=== PATIENT | male | born 1935 | race Caucasian/White ===

== ENCOUNTER 2020-03-01 14:31 | Emergency (ER) | payer OTHER ==
--- OUTSIDE RECORDS SUMMARY | 2020-03-01 14:33 | XMS REPORT | Continuity of Care Document ---
:[address] 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 Ou tpati ent Clinics Mild Mild Diagnosis Active [facility]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 [facility] - impairment impairment Me moria l [facility] Clin[facility] Essential Essential Diagnosis Active [facility] (primary) (primary) [facility] - hypertensi hypertensi Me moria on on l Outpati ent Clinics 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 [facility] - (BCC) of (BCC) of Memori a skin of skin of l ear, ear, Outpati unspecifie unspecifie en t d d Clinics laterality laterality Osteoporos Osteoporos Diagnosis Active [facility] is, is, [facility] - unspecifie unspecifie Me moria d d l osteoporos osteoporos Ou tpati is type, is type, ent unspecifie unspecifie Cl inics d d pathologic pathologic al al fracture fracture presence presence Hypertrigl Hypertrigl Diagnosis Active [facility] yceridemia yceridemia Annalise kes - [facility] Osteoarthr Osteoarthr Diagnosis Active [facility] itis, itis, [facility] - unspecifie unspecifie Me moria d d l osteoarthr osteoarthr Ou tpati itis type, itis type, en t unspecifie unspecifie Cl inics d site d site 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 Medications Ordered Filled Start Stop Current Ordering Indication Dosage Frequency Signature Comments Components Source Medication Medication Date Date Medication? Clinician (SIG) Name Name Melatonin Melatonin Yes Andrew [address] [facility] at bedtime [facility] - as needed [facility] with food [facility] Amlodipine Amlodipine Yes Andrew TAKE [address] [facility] Besylate Besylate Velazquez TABLET BY L ukes - MOUTH Memoria EVERY DAY l [facility] Aspercreme Aspercreme Yes Andrew as [facility] directed [facility] Tylenol Tylenol Yes Andrew [address] [facility]quez as needed [facility] Vitamin D3 Vitamin D3 Yes Andrew [address] [facility] Multi For Multi For Yes Andrew as [facility] Him 50+ Him 50+ Velazquez directed [facility] Coreg Coreg Yes Andrew [address] [facility] Losartan Losartan Yes Andrew [address] Potassium Potassium [facility]quez [facility] Ibuprofen Ibuprofen Yes Andrew [address] [facility] with food [facility] - or milk as Memoria needed l [facility] Fish Oil Fish Oil Yes Andrew [address] [facility] Vitamin B12 Vitamin B12 Yes Andrew as [facility] Immunizations Ordered Filled Immunization Date Status Comments Sourc e Immunization Name Name Silvio FluSRIDHAR 2019-06-[address] [facility] 00[facility]00 [facility] Outpatient Clinics Procedures This patient has no known procedures. Encounters Start End Encounter Admission Attending Care Care Encounter Source Date/Time Date/Time Type Type Clinicians Facility Department ID 2019-11-28 2019-11-28 Outpatient Matthew Howard [id number] [facility] 14:45[facility]00 14:45:00 [facility] 2019-09-11 2019-09-11 Outpatient Matthew Howard [id number] [facility] 10:46:00 10:46:00 [address] [employer] [address] [facility] Medicine Medicine Outpati ent Clinics 2019-08-30 2019-08-30 [facility] [id number] 14:00:00 14:00:00 [facility] [employer] [address] [facility] l Medicine Outpati ent Clinics 2019-06-25 2019-06-25 [facility] [id number] [address] 14:15:00 14:15:00 [facility] [employer] [address] [facility] Medicine l Medicine Outpati ent Clinics 2019-05-29 2019-05-29 [facility] [id number] [address] 13:00:00 13:00:00 [facility] [employer] [address] [facility] Medicine Outpati ent Clinics 2019-05-24 2019-05-24 [facility] [id number] 15:49:00 15:49:00 [facility] [employer] [address] [facility] Medicine Outpati ent Clinics 2019-05-21 2019-05-21 [facility] [id number] [address] 17:05:00 17:05:00 [facility] [employer] [address] [facility] l Medicine Outpati ent Clinics 2019-04-17 2019-04-17 [facility] [id number] 15[facility]15:00 15:15:00 [facility] Medicine Outpati ent Clinics 2018-10-26 2018-10-26 [facility] [id number] 10:00:00 10:00:00 t [facility] [employer] [facility] Medicine Medicine Outpati ent Clinics 2018-10-09 2018-10-09 [facility] [id number] 14:44:00 14:44:00 t [facility] [employer] [facility] l Medicine Outpati ent Clinics 2018-04-13 2018-04-13 [facility] [id number] 09:30:00 09:30:00 t [facility] [employer] [facility] [employer] [facility] Medicine Outpati ent Clinics 2018-03-14 2018-03-14 [facility] [id number] 14:00:00 14:00:00 [facility] Medicine Outpati ent Clinics Results This patient has no known results.
[2020-03-01] MEDS ORDERED: HYDROCODONE/APAP 7.5/325 MG TAB ONE (15:38)
--- NOTE | 2020-03-01 15:51 | ER ---
Nurse's Notes [facility] Name: Dragan Dalal Age: 84 yrs Sex: Male : 1935 Arrival Date: 03/01/2020 Time: 14:34 Bed 17 Private MD: Andrew Velazquez Diagnosis: Sciatica, right side Presentation: 03/01 14:48 Chief complaint: Patient states: right hip pain that radiates down the right leg, em denies injury, ambulated to room. Coronavirus screen: Client denies travel out of the [place] in the last 14 days. Ebola Screen: Patient negative for fever greater than or equal to 101.5 degrees Fahrenheit, and additional compatible Ebola Virus Disease symptoms Patient denies exposure to infectious person. Patient denies travel to an Ebola-affected area in the 21 days before illness onset. No symptoms or risks identified at this time. Initial Sepsis Screen: Does the patient meet any 2 criteria? No. Patient's initial sepsis screen is negative. Does the patient have a suspected source of infection? No. Patient's initial sepsis screen is negative. Risk Assessment: Do you want to hurt yourself or someone else? Patient reports no desire to harm self or others. Onset of symptoms was February 27, 2020. 14:48 Method Of Arrival: Ambulatory em 14:48 Acuity: DESIREE 4 em Historical: - Allergies: 14:50 No Known Allergies; em - PMHx: 14:50 Hypertension; em - PSHx: 14:50 Knee surgery; em - Immunization history:: Adult Immunizations up to date. - Social history:: Smoking status: Patient denies any tobacco usage or history of. Screenin:50 Abuse screen: Denies threats or abuse. Nutritional screening: No deficits noted. em Tuberculosis screening: No symptoms or risk factors identified. Fall Risk None identified. Assessment: 14:48 General: Appears in no apparent distress. uncomfortable, Behavior is calm, cooperative, em appropriate for age. Pain: Complains of pain in right hip Pain currently is 7 out of 10 on a pain scale. Neuro: Level of Consciousness is awake, alert, obeys commands, Oriented to person, place, time, situation, Appropriate for age. Cardiovascular: Capillary refill < 3 seconds Patient's skin is warm and dry. Respiratory: Airway is patent Respiratory effort is even, unlabored, Respiratory pattern is regular, symmetrical. Derm: Skin is intact, is fragile, is thin, Skin is pink, warm \T\ dry. Musculoskeletal: Capillary refill < 3 seconds, Range of motion: intact in all extremities. 15:30 Reassessment: Patient appears in no apparent distress at this time. Patient and/or em family updated on plan of care and expected duration. Pain level reassessed. Patient is alert, oriented x 3, equal unlabored respirations, skin warm/dry/pink. Vital Signs: 14:48 BP 165 / 88; Pulse 65; Resp 18; Temp 97.8; Pulse Ox 98% on R/A; Weight 65.77 kg; Height em 5 ft. 9 in. (175.26 cm); Pain 7/10; 14:48 Body Mass Index 21.41 (65.77 kg, 175.26 cm) em ED Course: 14:34 Patient arrived in ED. mr 14:34 Andrew Velazquez DO is Private Physician. mr 14:39 Benedicto Couch, EDIN is Primary Nurse. em 14:42 Zac Marie PA is PHCP. cp 14:42 Kam Alexandra MD is Attending Physician. cp 14:49 Triage completed. em 14:50 Arm band placed on. em 14:50 Patient has correct armband on for positive identification. Placed in gown. Bed in low em position. Call light in reach. 15:19 XRAY Pelvis In Process Unspecified. EDMS 15:20 XRAY Hip RIGHT 2 view In Process Unspecified. EDMS 16:13 No provider procedures requiring assistance completed. Patient did not have IV access em during this emergency room visit. Administered Medications: 15:31 Drug: Hydrocodone-Acetaminophen (7.5 mg-325 mg) 1 tabs Route: PO; em 16:15 Follow up: Response: No adverse reaction em Outcome: 15:51 Discharge ordered by MD. cp 16:13 Discharged to home via wheelchair. em 16:13 Condition: good 16:13 Discharge instructions given to patient, Instructed on discharge instructions, follow up and referral plans. medication usage, Demonstrated understanding of instructions, follow-up care, medications, Prescriptions given X 2. 16:15 Patient left the ED. em Signatures: Dispatcher [employer] Nga Garcia mr Couch, Benedicto, RN RN em Page, Zac, PA PA cp
--- NOTE | 2020-03-01 15:51 | EDPHYS ---
Physician Documentation [facility] Name: Dragan Dalal Age: 84 yrs Sex: Male : 1935 Arrival Date: 03/01/2020 Time: 14:34 Bed 17 Private MD: [facility] ED Physician Kam Alexandra HPI: 03/01 15:05 This 84 yrs old Male presents to ER via Ambulatory with complaints of Hip cp Pain, Leg Pain. 15:05 The patient or guardian reports pain. The complaints affect the right hip and right cp buttock. Onset: The symptoms/episode began/occurred 1 week(s) ago. 15:05 Patient reports having pain for years in right hip and right buttock area that became cp worse after bending over to catch an air conditioner that he was carrying 1 week ago. Historical: - Allergies: 14:50 No Known Allergies; em - PMHx: 14:50 Hypertension; em - PSHx: 14:50 Knee surgery; em - Immunization history:: Adult Immunizations up to date. - Social history:: Smoking status: Patient denies any tobacco usage or history of. ROS: 15:10 Constitutional: Negative for body aches, chills, fever. cp 15:10 Neck: Negative for pain with movement, pain at rest, stiffness. cp 15:10 Cardiovascular: Negative for chest pain. 15:10 Respiratory: Negative for shortness of breath. 15:10 Abdomen/GI: Negative for abdominal pain, nausea, vomiting, and diarrhea. 15:10 Back: Negative for pain at rest, pain with movement, radiated pain. 15:10 MS/extremity: Positive for pain, of the right hip and right leg and right buttock, Negative for decreased range of motion, deformity. 15:10 Neuro: Negative for altered mental status, headache, numbness, tingling, weakness. 15:10 All other systems are negative. Exam: 15:20 Constitutional: The patient appears in no acute distress, alert, awake, non-toxic, well cp developed, well nourished. 15:20 Head/Face: Normocephalic, atraumatic. cp 15:20 Chest/axilla: Inspection: normal. 15:20 Cardiovascular: Rate: normal, Edema: is not appreciated, JVD: is not appreciated. 15:20 Respiratory: the patient does not display signs of respiratory distress, Respirations: normal, no use of accessory muscles, no retractions, labored breathing, is not present. 15:20 Abdomen/GI: Inspection: abdomen appears normal, Palpation: abdomen is soft and non-tender, in all quadrants. 15:20 Back: vertebral tenderness, is not appreciated. 15:20 Musculoskeletal/extremity: Extremities: grossly normal except: noted in the right buttock: pain, tenderness, ROM: limited passive range of motion due to pain, in the right hip, the right leg Sensation intact. Weight bearing: able to fully bear weight. 15:20 Skin: no rash present. Vital Signs: 14:48 BP 165 / 88; Pulse 65; Resp 18; Temp 97.8; Pulse Ox 98% on R/A; Weight 65.77 kg; Height em 5 ft. 9 in. (175.26 cm); Pain 7/10; 14:48 Body Mass Index 21.41 (65.77 kg, 175.26 cm) em MDM: 14:44 Patient medically screened. cp 15:00 Differential diagnosis: intertrochanteric fracture, femoral neck fracture, femoral cp shaft fracture, strain, sciatica. 15:45 Test interpretation: by ED physician or midlevel provider: xrays of pelvis negative for cp fracture and xrays of right hip negative for fracture. 15:50 Data reviewed: vital signs, nurses notes, radiologic studies, plain films, and as a cp result, I will discharge patient. 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 15:50 Response to treatment: the patient's symptoms have markedly improved after treatment, cp and as a result, I will discharge patient. 03/01 14:59 Order name: XRAY Pelvis; Complete Time: 16:15 cp 03/01 16:15 Interpretation: Report reviewed. cp 03/01 14:59 Order name: XRAY Hip RIGHT 2 view; Complete Time: 16:15 cp 03/01 16:15 Interpretation: Report reviewed. cp Administered Medications: 15:31 Drug: Hydrocodone-Acetaminophen (7.5 mg-325 mg) 1 tabs Route: PO; em 16:15 Follow up: Response: No adverse reaction em Disposition: 16:00 Chart complete. cp Disposition: 03/01/20 15:51 Discharged to Home. Impression: Sciatica, right side. - Condition is Stable. - Discharge Instructions: Sciatica, Back Exercises. - Prescriptions for Tramadol 50 mg Oral Tablet - take 1 tablet by ORAL route every 8 hours As needed as needed; 20 tablet. Medrol (Rony) 4 mg Oral Tablets, Dose Pack - take 1 tablet by ORAL route as directed - follow package instructions; 1 packet. - Medication Reconciliation Form, Thank You Letter, Antibiotic Education, Prescription Opioid Use form. - Follow up: Private Physician; When: 2 - 3 days; Reason: Recheck today's complaints. - Problem is an ongoing problem. - Symptoms have improved. Signatures: Dispatcher [employer] Benedicto Mccartney RN RN em Cynthia, MICHELL Frank cp Corrections: (The following items were deleted from the chart) 16:15 15:51 03/01/2020 15:51 Discharged to Home. Impression: Sciatica, right side. Condition em is Stable. Forms are Medication Reconciliation Form, Thank You Letter, Antibiotic Education, Prescription Opioid Use. Follow up: Private Physician; When: 2 - 3 days; Reason: Recheck today's complaints. Problem is an ongoing problem. Symptoms have improved. cp
--- NOTE | 2020-03-01 16:00 | RAD REPORT ---
EXAM DESCRIPTION: RAD - Pelvis - 03/01/2020 3:23 pm CLINICAL HISTORY: PAIN COMPARISON: SCROTUM TESTICLES dated 02/15/2012 TECHNIQUE: AP imaging of the pelvis was obtained. FINDINGS: Lower lumbar degenerative change present only partially imaged. No fracture of the bony pe lvis. Bilateral hip joint degenerative changes are present mild for age. No AVN or focal femoral head abnormality seen. No suspicious soft tissue finding. IMPRESSION: Lower lumbar, pelvic and hip joint degenerative change as detailed. No fracture or acute finding.
--- NOTE | 2020-03-01 16:00 | RAD REPORT ---
EXAM DESCRIPTION: RAD - Hip Right 2 View - 03/01/2020 3:22 pm CLINICAL HISTORY: PAIN COMPARISON: No comparisons FINDINGS: AP and frog-leg views of the right hip were obtained. There is no fracture or dislocation. No AVN or focal head abnormality. No acute or destructive bony p rocess seen. IMPRESSION: Negative right hip examination for acute or significant findings.
== END 2020-03-01 16:15 | disposition home or self-care (01) ==
LOC: ER 14:31
DX: M54.31 Sciatica, right side (principal); I10 Essential (primary) hypertension
CPT/HCPCS: 72170; 99283

== ENCOUNTER 2022-06-19 17:42 | Emergency (ER) | payer MEDICARE ==
--- OUTSIDE RECORDS SUMMARY | 2022-06-19 17:45 | XMS REPORT | Continuity of Care Document ---
:1935 Author Organization [facility] t Address [address] [place] [address] Care Team Providers Name Role Phone Andrew Velazquez Attending Clinician Unavailable Wilbert_Mercedes Attending Clinician Unavailable BWclaribel Attending Clinician Unavailable Stacie Freeman Attending Clinician Wilbert_T Admitting Clinician Unavailable BWclaribel Admitting Clinician Unavailable Payers Payer Name Policy Type Policy Effective Date Expiration Date Sour ce Number [facility] [id number] 2021 (MEDICARE 00:00:00 REPLACEMENT HMO) [employer] MEDICARE C1 [id number] [facility] rit PPO - [facility] Problems Condition Condition Condition Status Onset Resolution Last Treating Co mments Source Name Details Category Date Date Treatment Clinician Date [id number] 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 - [facility] [id number] 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 - [facility] [id number] 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 unspecifie Medica l d Center laterality [id number] Osteoarthr Problem Co mmon itis, Spirit unspecifie - [facility] d osteoarthr [facility] itis type, Medica l unspecifie Center d site [id number] Hypertrigl Problem Co mmon yceridemia [facility] Allergies, Adverse Reactions, Alerts This patient has no known allergies or adverse reactions. Social History Social Habit Start Date Stop Date Quantity Comments Source History of Tobacco Use Co mmon [facility] Sex Assigned At Com mon [facility] Smoking Status Start Date Stop Date Source Former Smoker 2022-04-16 00:00:00 2022-04-16 00:00:00 Common [facility] Medications Ordered Filled Start Stop Current Ordering Indication Dosage Frequency Signature Comments Components Source Medication Medication Date Date Medication? Clinician (SIG) Name Name Melatonin Melatonin Yes Andrew 1 tablet Common Velazquez at bedtime Spirit as needed - [facility] with food [facility] Amlodipine Amlodipine Yes Andrew TAKE 1 Common Besylate Besylate Velazquez TABLET BY [facility] MOUTH - [facility] EVERY DAY [facility] Aspercreme Aspercreme Yes Andrew as C ommon Velazquez directed [facility] Tylenol Tylenol Yes Andrew 1 tablet Com mon Velazquez as needed [facility] Vitamin D3 Vitamin D3 Yes Andrew 2 tablets Common Velazquez [facility] Multi For Multi For Yes Andrew as Com mon Him 50+ Him 50+ Velazquez directed Spir [facility] Coreg Coreg Yes Andrew 1 tablet Common Velazquez [facility] Losartan Losartan Yes Andrew 1 tablet C ommon Potassium Potassium Velazquez [facility] Ibuprofen Ibuprofen Yes Andrew 1 tablet Common Velazquez with food Spirit or milk as - [facility] needed [facility] Fish Oil Fish Oil Yes Andrew 1 capsule Common Velazquez [facility] Vitamin B12 Vitamin B12 Yes Andrew as Common Velazquez directed [facility] Carvedilol Carvedilol Yes Andrew TAKE 1 Common Velazquez TABLET BY Spirit MOUTH - [facility] TWICE [facility] amLODIPine amLODIPine No QD amLODIPine Besylate Besylate Besylate 2.5 MG 2.5 MG 2.5 MG Losartan Losartan No 1{table BID Losartan Potassium Potassium t} Potassium 50 MG 50 MG 50 MG Coreg 12.5 Coreg 12.5 No 1{table BID Coreg 12.5 MG MG t} MG Donepezil Donepezil No 1{table QD Donepezil HCl 10 MG HCl 10 MG t_at_be HCl 10 MG dtime} Carvedilol Carvedilol No Carvedilol 12.5 MG 12.5 MG 12.5 MG Aspercreme Aspercreme No Aspercreme 10 % 10 % 10 % Melatonin 3 Melatonin 3 No 1{table QD Melatonin MG MG t_at_be 3 MG dtime_a s_neede d_with_ food} Multi For Multi For No Multi For Him 50+ - Him 50+ - Him 50+ - Fish Oil Fish Oil No 1{capsu QD Fish Oil 1000 MG 1000 MG le} 1000 MG Vitamin D3 Vitamin D3 No 2{table QD Vitamin D3 400 UNIT 400 UNIT ts} 400 UNIT Losartan Losartan No 1{table BID Losartan Potassium Potassium t} Potassium 50 MG 50 MG 50 MG Ibuprofen Ibuprofen No TID Ibuprofen 200 MG 200 MG 200 MG Tylenol 325 Tylenol 325 No 1{table 6xD Tylenol MG MG t_as_ne 325 MG eded} amLODIPine amLODIPine No amLODIPine Besylate Besylate Besylate 2.5 MG 2.5 MG 2.5 MG Vitamin B12 Vitamin B12 No Vitamin 100 MCG 100 MCG B12 100 MCG Losartan Losartan No 1{table BID Losartan Potassium Potassium t} Potassium 50 MG 50 MG 50 MG Coreg 12.5 Coreg 12.5 No 1{table BID Coreg 12.5 MG MG t} MG Donepezil Donepezil No 1{table QD Donepezil HCl 10 MG HCl 10 MG t_at_be HCl 10 MG dtime} Carvedilol Carvedilol No Carvedilol 12.5 MG 12.5 MG 12.5 MG Aspercreme Aspercreme No Aspercreme 10 % 10 % 10 % Melatonin 3 Melatonin 3 No 1{table QD Melatonin MG MG t_at_be 3 MG dtime_a s_neede d_with_ food} Multi For Multi For No Multi For Him 50+ - Him 50+ - Him 50+ - Fish Oil Fish Oil No 1{capsu QD Fish Oil 1000 MG 1000 MG le} 1000 MG Vitamin D3 Vitamin D3 No 2{table QD Vitamin D3 400 UNIT 400 UNIT ts} 400 UNIT Losartan Losartan No 1{table BID Losartan Potassium Potassium t} Potassium 50 MG 50 MG 50 MG Ibuprofen Ibuprofen No TID Ibuprofen 200 MG 200 MG 200 MG Tylenol 325 Tylenol 325 No 1{table 6xD Tylenol MG MG t_as_ne 325 MG eded} amLODIPine amLODIPine No amLODIPine Besylate Besylate Besylate 2.5 MG 2.5 MG 2.5 MG Vitamin B12 Vitamin B12 No Vitamin 100 MCG 100 MCG B12 100 MCG Losartan Losartan No 1{table BID Losartan Potassium Potassium t} Potassium 50 MG 50 MG 50 MG Coreg 12.5 Coreg 12.5 No 1{table BID Coreg 12.5 MG MG t} MG Donepezil Donepezil No 1{table QD Donepezil HCl 10 MG HCl 10 MG t_at_be HCl 10 MG dtime} Carvedilol Carvedilol No Carvedilol 12.5 MG 12.5 MG 12.5 MG Aspercreme Aspercreme No Aspercreme 10 % 10 % 10 % Melatonin 3 Melatonin 3 No 1{table QD Melatonin MG MG t_at_be 3 MG dtime_a s_neede d_with_ food} Multi For Multi For No Multi For Him 50+ - Him 50+ - Him 50+ - Fish Oil Fish Oil No 1{capsu QD Fish Oil 1000 MG 1000 MG le} 1000 MG Vitamin D3 Vitamin D3 No 2{table QD Vitamin D3 400 UNIT 400 UNIT ts} 400 UNIT Losartan Losartan No 1{table BID Losartan Potassium Potassium t} Potassium 50 MG 50 MG 50 MG Ibuprofen Ibuprofen No TID Ibuprofen 200 MG 200 MG 200 MG Tylenol 325 Tylenol 325 No 1{table 6xD Tylenol MG MG t_as_ne 325 MG eded} amLODIPine amLODIPine No amLODIPine Besylate Besylate Besylate 2.5 MG 2.5 MG 2.5 MG Vitamin B12 Vitamin B12 No Vitamin 100 MCG 100 MCG B12 100 MCG amLODIPine amLODIPine No QD amLODIPine Besylate Besylate Besylate 2.5 MG 2.5 MG 2.5 MG Losartan Losartan No Losartan Potassium Potassium Potassium 50 MG 50 MG 50 MG Vitamin D3 Vitamin D3 No 2{table QD Vitamin D3 400 UNIT 400 UNIT ts} 400 UNIT Multi For Multi For No Multi For Him 50+ - Him 50+ - Him 50+ - Vitamin B12 Vitamin B12 No Vitamin 100 MCG 100 MCG B12 100 MCG Melatonin 3 Melatonin 3 No 1{table QD Melatonin MG MG t_at_be 3 MG dtime_a s_neede d_with_ food} Donepezil Donepezil No 1{table QD Donepezil HCl 10 MG HCl 10 MG t_at_be HCl 10 MG dtime} Aspercreme Aspercreme No Aspercreme 10 % 10 % 10 % Carvedilol Carvedilol No Carvedilol 12.5 MG 12.5 MG 12.5 MG Coreg 12.5 Coreg 12.5 No 1{table BID Coreg 12.5 MG MG t} MG amLODIPine amLODIPine No amLODIPine Besylate Besylate Besylate 2.5 MG 2.5 MG 2.5 MG Tylenol 325 Tylenol 325 No 1{table 6xD Tylenol MG MG t_as_ne 325 MG eded} Fish Oil Fish Oil No 1{capsu QD Fish Oil 1000 MG 1000 MG le} 1000 MG Ibuprofen Ibuprofen No TID Ibuprofen 200 MG 200 MG 200 MG Losartan Losartan No 1{table BID Losartan Potassium Potassium t} Potassium 50 MG 50 MG 50 MG Vitamin B12 Vitamin B12 No Vitamin 100 MCG 100 MCG B12 100 MCG Ibuprofen Ibuprofen No TID Ibuprofen 200 MG 200 MG 200 MG Losartan Losartan No 1{table BID Losartan Potassium Potassium t} Potassium 50 MG 50 MG 50 MG amLODIPine amLODIPine No amLODIPine Besylate Besylate Besylate 2.5 MG 2.5 MG 2.5 MG Donepezil Donepezil No 1{table QD Donepezil HCl 10 MG HCl 10 MG t_at_be HCl 10 MG dtime} Carvedilol Carvedilol No Carvedilol 12.5 MG 12.5 MG 12.5 MG Aspercreme Aspercreme No Aspercreme 10 % 10 % 10 % Tylenol 325 Tylenol 325 No 1{table 6xD Tylenol MG MG t_as_ne 325 MG eded} Coreg 12.5 Coreg 12.5 No 1{table BID Coreg 12.5 MG MG t} MG Melatonin 3 Melatonin 3 No 1{table QD Melatonin MG MG t_at_be 3 MG dtime_a s_neede d_with_ food} amLODIPine amLODIPine No QD amLODIPine Besylate Besylate Besylate 2.5 MG 2.5 MG 2.5 MG Multi For Multi For No Multi For Him 50+ - Him 50+ - Him 50+ - Losartan Losartan No Losartan Potassium Potassium Potassium 50 MG 50 MG 50 MG Fish Oil Fish Oil No 1{capsu QD Fish Oil 1000 MG 1000 MG le} 1000 MG Vitamin D3 Vitamin D3 No 2{table QD Vitamin D3 400 UNIT 400 UNIT ts} 400 UNIT amLODIPine amLODIPine No QD amLODIPine Besylate Besylate Besylate 2.5 MG 2.5 MG 2.5 MG Ibuprofen Ibuprofen No TID Ibuprofen 200 MG 200 MG 200 MG Carvedilol Carvedilol No Carvedilol 12.5 MG 12.5 MG 12.5 MG Aspercreme Aspercreme No Aspercreme 10 % 10 % 10 % Multi For Multi For No Multi For Him 50+ - Him 50+ - Him 50+ - Donepezil Donepezil No 1{table QD Donepezil HCl 10 MG HCl 10 MG t_at_be HCl 10 MG dtime} Melatonin 3 Melatonin 3 No 1{table QD Melatonin MG MG t_at_be 3 MG dtime_a s_neede d_with_ food} Losartan Losartan No 1{table BID Losartan Potassium Potassium t} Potassium 50 MG 50 MG 50 MG Losartan Losartan No Losartan Potassium Potassium Potassium 50 MG 50 MG 50 MG amLODIPine amLODIPine No amLODIPine Besylate Besylate Besylate 2.5 MG 2.5 MG 2.5 MG Fish Oil Fish Oil No 1{capsu QD Fish Oil 1000 MG 1000 MG le} 1000 MG Vitamin B12 Vitamin B12 No Vitamin 100 MCG 100 MCG B12 100 MCG Tylenol 325 Tylenol 325 No 1{table 6xD Tylenol MG MG t_as_ne 325 MG eded} Vitamin D3 Vitamin D3 No 2{table QD Vitamin D3 400 UNIT 400 UNIT ts} 400 UNIT Ibuprofen Ibuprofen No TID Ibuprofen 200 MG 200 MG 200 MG Tylenol 325 Tylenol 325 No 1{table 6xD Tylenol MG MG t_as_ne 325 MG eded} Losartan Losartan No 1{table BID Losartan Potassium Potassium t} Potassium 50 MG 50 MG 50 MG Aspercreme Aspercreme No Aspercreme 10 % 10 % 10 % amLODIPine amLODIPine No QD amLODIPine Besylate Besylate Besylate 2.5 MG 2.5 MG 2.5 MG Carvedilol Carvedilol No Carvedilol 12.5 MG 12.5 MG 12.5 MG Fish Oil Fish Oil No 1{capsu QD Fish Oil 1000 MG 1000 MG le} 1000 MG Multi For Multi For No Multi For Him 50+ - Him 50+ - Him 50+ - Donepezil Donepezil No 1{table QD Donepezil HCl 10 MG HCl 10 MG t_at_be HCl 10 MG dtime} Vitamin D3 Vitamin D3 No 2{table QD Vitamin D3 400 UNIT 400 UNIT ts} 400 UNIT Melatonin 3 Melatonin 3 No 1{table QD Melatonin MG MG t_at_be 3 MG dtime_a s_neede d_with_ food} Coreg 12.5 Coreg 12.5 No 1{table BID Coreg 12.5 MG MG t} MG Vitamin B12 Vitamin B12 No Vitamin 100 MCG 100 MCG B12 100 MCG Ibuprofen Ibuprofen No TID Ibuprofen 200 MG 200 MG 200 MG amLODIPine amLODIPine No QD amLODIPine Besylate Besylate Besylate 2.5 MG 2.5 MG 2.5 MG Aspercreme Aspercreme No Aspercreme 10 % 10 % 10 % Tylenol 325 Tylenol 325 No 1{table 6xD Tylenol MG MG t_as_ne 325 MG eded} Coreg 12.5 Coreg 12.5 No 1{table BID Coreg 12.5 MG MG t} MG Carvedilol Carvedilol No Carvedilol 12.5 MG 12.5 MG 12.5 MG Fish Oil Fish Oil No 1{capsu QD Fish Oil 1000 MG 1000 MG le} 1000 MG Multi For Multi For No Multi For Him 50+ - Him 50+ - Him 50+ - Donepezil Donepezil No 1{table QD Donepezil HCl 10 MG HCl 10 MG t_at_be HCl 10 MG dtime} Vitamin D3 Vitamin D3 No 2{table QD Vitamin D3 400 UNIT 400 UNIT ts} 400 UNIT Melatonin 3 Melatonin 3 No 1{table QD Melatonin MG MG t_at_be 3 MG dtime_a s_neede d_with_ food} Losartan Losartan No 1{table BID Losartan Potassium Potassium t} Potassium 50 MG 50 MG 50 MG Vitamin B12 Vitamin B12 No Vitamin 100 MCG 100 MCG B12 100 MCG Vitamin D3 Vitamin D3 No 2{table QD Vitamin D3 400 UNIT 400 UNIT ts} 400 UNIT Fish Oil Fish Oil No 1{capsu QD Fish Oil 1000 MG 1000 MG le} 1000 MG Donepezil Donepezil No 1{table QD Donepezil HCl 10 MG HCl 10 MG t_at_be HCl 10 MG dtime} Carvedilol Carvedilol No Carvedilol 12.5 MG 12.5 MG 12.5 MG Tylenol 325 Tylenol 325 No 1{table 6xD Tylenol MG MG t_as_ne 325 MG eded} Ibuprofen Ibuprofen No TID Ibuprofen 200 MG 200 MG 200 MG Losartan Losartan No 1{table BID Losartan Potassium Potassium t} Potassium 50 MG 50 MG 50 MG Melatonin 3 Melatonin 3 No 1{table QD Melatonin MG MG t_at_be 3 MG dtime_a s_neede d_with_ food} amLODIPine amLODIPine No QD amLODIPine Besylate Besylate Besylate 2.5 MG 2.5 MG 2.5 MG Vitamin B12 Vitamin B12 No Vitamin 100 MCG 100 MCG B12 100 MCG Aspercreme Aspercreme No Aspercreme 10 % 10 % 10 % Coreg 12.5 Coreg 12.5 No 1{table BID Coreg 12.5 MG MG t} MG Multi For Multi For No Multi For Him 50+ - Him 50+ - Him 50+ - Melatonin 3 Melatonin 3 No 1{table QD Melatonin MG MG t_at_be 3 MG dtime_a s_neede d_with_ food} Aspercreme Aspercreme No Aspercreme 10 % 10 % 10 % Donepezil Donepezil No 1{table QD Donepezil HCl 10 MG HCl 10 MG t_at_be HCl 10 MG dtime} Multi For Multi For No Multi For Him 50+ - Him 50+ - Him 50+ - Fish Oil Fish Oil No 1{capsu QD Fish Oil 1000 MG 1000 MG le} 1000 MG Vitamin B12 Vitamin B12 No Vitamin 100 MCG 100 MCG B12 100 MCG Vitamin D3 Vitamin D3 No 2{table QD Vitamin D3 400 UNIT 400 UNIT ts} 400 UNIT Ibuprofen Ibuprofen No TID Ibuprofen 200 MG 200 MG 200 MG amLODIPine amLODIPine No QD amLODIPine Besylate Besylate Besylate 2.5 MG 2.5 MG 2.5 MG Carvedilol Carvedilol No Carvedilol 12.5 MG 12.5 MG 12.5 MG Tylenol 325 Tylenol 325 No 1{table 6xD Tylenol MG MG t_as_ne 325 MG eded} Losartan Losartan No 1{table BID Losartan Potassium Potassium t} Potassium 50 MG 50 MG 50 MG Losartan Losartan No 1{table BID Losartan Potassium Potassium t} Potassium 50 MG 50 MG 50 MG Coreg 12.5 Coreg 12.5 No 1{table BID Coreg 12.5 MG MG t} MG Immunizations Ordered Immunization Filled Immunization Date Status Commen ts Source Name Name FLUZONE HIGH DOSE FLUZONE HIGH DOSE 2022-04-26 Completed [facility] OVER 65 OVER 65 13:42:00 - [facility] FluAD FluAD 2020-04-01 Completed [facility] 14:07:00 - [facility] FluAD FluAD 2020-04-01 Completed [facility] 14:07:00 - [facility] FluAD FluAD 2020-04-01 Completed [facility] 14:07:00 - [facility] FluAD FluAD 2020-04-01 Completed [facility] 14:07:00 - [facility] FluAD FluAD 2020-04-01 Completed [facility] 14:07:00 - [facility] FluAD FluAD 2020-04-01 Completed [facility] 14:07:00 - [facility] FluAD FluAD 2020-04-01 Completed [facility] 14:07:00 - [facility] FluAD FluAD 2020-04-01 Completed [facility] 14:07:00 - [facility] FluAD FluAD 2020-04-01 Completed [facility] 14:07:00 - [facility] FluAD FluAD 2020-04-01 Completed [facility] 14:07:00 - [facility] FluAD FluAD 2019-06-25 Completed [facility] 14:33:00 - [facility] FluAD FluAD 2019-06-25 Completed [facility] 14:33:00 - [facility] FluAD FluAD 2019-06-25 Completed [facility] 14:33:00 - [facility] FluAD FluAD 2019-06-25 Completed [facility] 14:33:00 - [facility] FluAD FluAD 2019-06-25 Completed [facility] 14:33:00 - [facility] FluAD FluAD 2019-06-25 Completed [facility] 14:33:00 - [facility] FluAD FluAD 2019-06-25 Completed [facility] 14:33:00 - [facility] FluAD FluAD 2019-06-25 Completed [facility] 14:33:00 - [facility] FluAD 2019-06-25 Completed [facility] 14:33:00 - [facility] Flu 2019-06-25 Completed [facility] 14:33:00 - [facility] FluAD 2019-06-25 Completed [facility] 00:00:00 - [facility] Vital Signs Vital Name Observation Time Observation Value Comments Source height 2022-05-26 14:00:00 69.5 [in_i] [facility] weight 2022-05-26 14:00:00 147.8 [lb_av] [facility] temperature 2022-05-26 14:00:00 98.7 [degF] [facility] bmi 2022-05-26 14:00:00 21.51 kg/m2 [facility] oximetry 2022-05-26 14:00:00 99 % [facility] respiratory rate 2022-05-26 14:00:00 18 /min Comm on [facility] blood pressure 2022-05-26 14:00:00 132 mm[Hg] [facility] systolic [facility] blood pressure 2022-05-26 14:00:00 68 mm[Hg] [facility] diastolic [facility] height 2022-04-19 13:00:00 69.5 [in_i] Common [facility] weight 2022-04-19 13:00:00 148.7 [lb_av] [facility] temperature 2022-04-19 13:00:00 97.2 [degF] [facility] bmi 2022-04-19 13:00:00 21.64 kg/m2 [facility] oximetry 2022-04-19 13:00:00 96 % [facility] respiratory rate 2022-04-19 13:00:00 17 /min Comm on [facility] blood pressure 2022-04-19 13:00:00 137 mm[Hg] [facility] - systolic [facility] blood pressure 2022-04-19 13:00:00 70 mm[Hg] [facility] - diastolic [facility] height 2022-02-16 15:00:00 69.5 [in_i] [facility] weight 2022-02-16 15:00:00 147.7 [lb_av] Common [facility] temperature 2022-02-16 15:00:00 97.7 [degF] Common [facility] bmi 2022-02-16 15:00:00 21.5 kg/m2 [facility] oximetry 2022-02-16 15:00:00 98 % Common [facility] respiratory rate 2022-02-16 15:00:00 17 /min Comm on [facility] blood pressure 2022-02-16 15:00:00 137 mm[Hg] Common [facility] - systolic [facility] blood pressure 2022-02-16 15:00:00 71 mm[Hg] Common [facility] - diastolic [facility] height 2021-11-16 14:20:00 69.5 [in_i] Common [facility] weight 2021-11-16 14:20:00 152.0 [lb_av] Common [facility] temperature 2021-11-16 14:20:00 99.3 [degF] [facility] bmi 2021-11-16 14:20:00 22.12 kg/m2 [facility] oximetry 2021-11-16 14:20:00 97 % [facility] respiratory rate 2021-11-16 14:20:00 17 /min Comm on [facility] blood pressure 2021-11-16 14:20:00 132 mm[Hg] Common [facility] - systolic [facility] blood pressure 2021-11-16 14:20:00 76 mm[Hg] Common [facility] - diastolic [facility] height 2021-11-16 14:20:00 69.5 [in_i] [facility] weight 2021-11-16 14:20:00 152.0 [lb_av] [facility] temperature 2021-11-16 14:20:00 99.3 [degF] [facility] bmi 2021-11-16 14:20:00 22.12 kg/m2 [facility] oximetry 2021-11-16 14:20:00 97 % [facility] respiratory rate 2021-11-16 14:20:00 17 /min Comm on [facility] blood pressure 2021-11-16 14:20:00 132 mm[Hg] Common [facility] - systolic [facility] blood pressure 2021-11-16 14:20:00 76 mm[Hg] [facility] diastolic [facility] Procedures This patient has no known procedures. Encounters Start End Encounter Admission Attending Care Care Encounter Source Date/Time Date/Time Type Type Clinicians Facility Department ID 2022-04-16 Outpatient Velazquez, STLMLC STLC [id number] Common 15:41:00 Andrew [facility] 2021-08-24 Outpatient Velazquez, STLMLC STLC [id number] [facility] 14:28:01 Andrew [facility] 2021-07-29 Outpatient Velazquez, STLMLC STLMLC [id number] Common 14:37:35 Andrew [facility] 2021-07-29 Outpatient Velazquez, STLMLC STLMLC [id number] Common 12:38:01 Andrew [facility] 2021-07-29 Outpatient Velazquez, STLMLC STLMLC [id number] Common 12:36:57 Andrew [facility] 2022-06-08 2022-06-08 Outpatient Delbridge_T DMG [id number] [facility] 00:00:00 00:00:00 [id number] [facility] 2022-05-26 2022-05-26 OFFICE STLMLC STLMLC [id number] Co mmon 00:00:00 00:00:00 VISIT NEW Spir it PT LEVEL 2 - [facility] 2022-04-19 2022-04-19 OFFICE STLMLC STLMLC [id number] Co mmon 00:00:00 00:00:00 VISIT Spirit ESTAB PT - [facility] LEVEL 4 [facility] 2022-02-16 2022-02-16 OFFICE STLMLC STLMLC [id number] Co mmon 00:00:00 00:00:00 VISIT [facility] ESTAB PT - [facility] LEVEL 4 [facility] 2022-01-15 2022-01-15 [id number] [facility] 08:27:00 08:27:00 0715 [facility] 2021-12-08 2021-12-08 (TEL) STLMLC STLMLC [id number] Co mmon 00:00:00 00:00:00 [facility] - [facility] 2021-11-16 2021-11-16 SUB ANNUAL STLMLC STLMLC [id number] Common 00:00:00 00:00:00 MCR [facility] WELLNESS - [facility] VISIT [facility] 2021-11-16 2021-11-16 OFFICE STLMLC STLMLC [id number] Co mmon 00:00:00 00:00:00 VISIT [facility] ESTAB PT - [facility] LEVEL 4 [facility] 2021-10-19 2021-10-19 (TEL) STLMLC STLMLC [id number] Co mmon 00:00:00 00:00:00 [facility] - [facility] 2021-08-26 2021-08-26 CAV Vonja [id number] [id number] [facility] 19:00:00 20:00:00 Pete [id number] 7[facility] [id number] 2021-08-24 2021-08-24 (TEL) STLMLC STLMLC [id number] Co mmon 00:00:00 00:00:00 [facility] 2021-08-14 2021-08-14 Outpatient BWilliams DMG DMG [id number] [facility] 01:48:00 01:48:00 [id number] [facility] 2021-07-10 2021-07-10 Outpatient BWilliams DMG DMG [id number] [facility] 12:25:00 12:25:00 [id number] [facility] 2021-06-07 2021-06-07 (WEB) STLMLC STLMLC [id number] Co mmon 00:00:00 00:00:00 [facility] 2021-06-05 2021-06-05 (TEL) STLMLC STLMLC [id number] Co mmon 00:00:00 00:00:00 [facility] 2021-05-27 2021-05-27 Outpatient DMG [id number] [facility] 11:00:00 11:00:00 [id number] [facility] 2020-09-09 2020-09-09 Outpatient STLMLC STLMLC [id number] [facility] 00:00:00 00:00:00 [facility] 2020-09-09 2020-09-09 Outpatient STLMLC STLMLC [id number] [facility] 00:00:00 00:00:00 [facility] 2020-06-13 2020-06-13 Outpatient STLMLC STLMLC [id number] [facility] 00:00:00 00:00:00 [facility] 2020-06-12 2020-06-12 Outpatient STLMLC STLMLC [id number] [facility] 00:00:00 00:00:00 [facility] 2020-03-13 2020-03-13 [facility] [id number] [facility] 14:00:00 14:00:[address] [facility] 2019-11-28 2019-11-28 Out[facility] [id number] [facility] 14:45:00 14:45:[address] [facility] 2019-09-11 2019-09-11 Out[facility] [id number] Common 10:46:00 10:46:[address] [place] [address] [facility] 2019-08-30 2019-08-30 [id number] Common 14:00:00 14:00:00 [address] [place] [address] [facility] 2019-06-25 2019-06-25 [facility] [id number] Common 14:15:00 14:15:00 [address] [place] [address] [facility] 2019-05-29 2019-05-29 [facility] [id number] Common 13:00:00 13:00:00 [address] [place] [address] [facility] 2019-05-24 2019-05-24 [facility] [id number] Common 15:49:00 15:49:00 [address] [place] [address] [facility] 2019-05-21 2019-05-21 [facility] [id number] Common 17:05:00 17:05:00 [address] [place] [address] [facility] 2019-04-17 2019-04-17 [facility] [id number] Common 15:15:00 15:15:00 [address] [place] [address] [facility] 2018-10-26 2018-10-26 [facility] [id number] Common 10:00:00 10:00:[address] [facility] 2018-10-09 2018-10-09 [facility] [id number] Common 14:44:00 14:44:[address] [facility] 2018-04-13 2018-04-13 [facility] [id number] Common 09:30:00 09:30:[address] [facility] 2018-03-14 2018-03-14 [facility] [id number] Common 14:00:00 14:00:00 t [place] [facility] Results This patient has no known results.
[2022-06-19] MEDS ORDERED: AMLODIPINE 5 MG TAB ONE (18:45)
[2022-06-19 18:52] LABS: Urine Blood Negative (Negative); Urine Glucose Negative (Negative); Urine Protein Negative (Negative)
[2022-06-19 18:53] LABS: Hematocrit 41.5 % (39.6-49.0); Lymphocytes % 18.2 % (15.3-44.8); MCV 95.9 fL (80-100); RBC Red Blood Cell Count 4.33 M/uL (4.33-5.43)
[2022-06-19 19:13] LABS: Potassium 3.6 mmol/L (3.5-5.1); Troponin High Sensitivity 7.1 pg/mL (<58.9)
--- NOTE | 2022-06-19 19:29 | EDPHYS ---
Physician Documentation [facility] Name: Dragan Dalal Age: 86 yrs Sex: Male : 1935 Arrival Date: 06/19/2022 Time: 17:44 Bed 20 Private MD: Marcus Andrew ED Physician Francisco Javier Rosenthal HPI: 06/19 18:14 This 86 yrs old Male presents to ER via Ambulatory with complaints of High Blood jmm Pressure. 18:14 Onset: The symptoms/episode began/occurred gradually. This is an 86 year old male with jmm a history of htn that presents to the ED with complaints of elevated blood pressure which he has noted me over the past 3 days. Patient currently denies chest pain, headache, shortness of breath. Patient states he takes losartan, amlodipine, and carvedilol for his BP. . Historical: - Allergies: 18:12 No Known Allergies; ph - Home Meds: 20:23 carvedilol Oral [Active]; lisinopril Oral once daily [Active]; kb3 - PMHx: 18:12 Hypertension; ph - PSHx: 20:23 None; kb3 - Immunization history:: Client reports receiving the 2nd dose of the Covid vaccine. - Social history:: Smoking status: Patient denies any tobacco usage or history of. ROS: 18:14 Constitutional: Negative for fever, chills, and weight loss, Cardiovascular: Negative jmm for chest pain, palpitations, and edema, Respiratory: Negative for shortness of breath, cough, wheezing, and pleuritic chest pain. 18:14 All other systems are negative. Exam: 18:14 Constitutional: This is a well developed, well nourished patient who is awake, alert, jmm and in no acute distress. Head/Face: atraumatic. Eyes: EOMI, no conjunctival erythema appreciated ENT: Moist Mucus Membranes Neck: Trachea midline, Supple Chest/axilla: Normal chest wall appearance and motion. Cardiovascular: Regular rate and rhythm. No edema appreciated Respiratory: Normal respirations, no respiratory distress appreciated Abdomen/GI: Non distended Back: Normal ROM Skin: General appearance color normal MS/ Extremity: Moves all extremities, no obvious deformities appreciated, no edema noted to the lower extremities Neuro: Awake and alert Psych: Behavior is normal, Mood is normal, Patient is cooperative and pleasant Vital Signs: 18:14 BP 185 / 86; Pulse 63; Resp 18; Temp 97.8; Pulse Ox 98% on R/A; Weight 63.5 kg; Height ph 5 ft. 9 in. (175.26 cm); 18:51 BP 170 / 80; Pulse 56; Resp 17; ll1 19:00 BP 163 / 80; Pulse 60; Resp 20; Pulse Ox 99% ; kb3 19:30 BP 172 / 83; Pulse 57; Resp 18; Pulse Ox 98% ; kb3 18:14 Body Mass Index 20.67 (63.50 kg, 175.26 cm) ph MDM: 18:14 Patient medically screened. [facility] 19:25 Data reviewed: vital signs, nurses notes. Counseling: I had a detailed discussion with [facility] the patient and/or guardian regarding: the historical points, exam findings, and any diagnostic results supporting the discharge/admit diagnosis, lab results, the need for outpatient follow up, to return to the emergency department if symptoms worsen or persist or if there are any questions or concerns that arise at home. ED course: Patient is alert and non toxic in appearance in the ED. Labs unremarkable. Patient has no currently complaints. Patient advised to follow up with pcp for medication adjustment. . 06/19 18:14 Order name: CBC with Diff; Complete Time: 19:00 [facility] 06/19 18:14 Order name: BMP; Complete Time: 19:18 [facility] 06/19 18:14 Order name: Troponin High Sensitivity; Complete Time: 19:18 [facility] 06/19 18:14 Order name: EKG - Nurse/Tech; Complete Time: 18:35 [facility] 06/19 18:52 Order name: Urine Dipstick-Ancillary; Complete Time: 18:53 [facility] 06/19 18:14 Order name: Saline Lock; Complete Time: 18:40 [facility] Administered Medications: 18:51 Drug: amLODIPine 5 mg Route: PO; ll1 20:00 Follow up: Response: No adverse reaction kb3 Disposition: 06/20 19:39 Co-signature as Attending Physician, Francisco Javier Rosenthal MD. rn Disposition Summary: 06/19/22 19:28 Discharge Ordered Location: Home [facility] Condition: Stable [facility] Diagnosis - Hypertension [facility] Followup: [facility] - With: Private Physician - When: 2 - 3 days - Reason: Recheck today's complaints, Continuance of care, Re-evaluation by your physician Discharge Instructions: - Discharge Summary Sheet jmm - Hypertension, Adult [facility] Forms: - Medication Reconciliation Form [facility] - Thank You Letter ramo - Antibiotic Education [facility] - Prescription Opioid Use [facility] Prescriptions: - amlodipine 5 mg Oral tablet - take 1 tablet by ORAL route once daily; 30 tablet; Refills: 0, Product jm Selection Permitted Signatures: Dispatcher [employer] Alfredo Pitt PA PA [facility] Francisco Javier Rosenthal MD MD rn Hall, Patricia RN RN Gilberto Botello RN RN ll1 Julienne Gary RN RN kb3
--- NOTE | 2022-06-19 19:29 | ER ---
Nurse's Notes [facility] Name: Dragan Dalal Age: 86 yrs Sex: Male : 1935 Arrival Date: 06/19/2022 Time: 17:44 Bed 20 Private MD: Andrew Velazquez Diagnosis: Hypertension Presentation: 06/19 18:10 Chief complaint: Patient states: High blood pressure x " a few days" Chest pain 2 days ph ago, dizziness or any other symptoms. Does take BP meds. Ebola Screen: No symptoms or risks identified at this time. Initial Sepsis Screen: Does the patient meet any 2 criteria? No. Patient's initial sepsis screen is negative. Does the patient have a suspected source of infection? No. Patient's initial sepsis screen is negative. Risk Assessment: Do you want to hurt yourself or someone else? Patient reports no desire to harm self or others. 18:10 Method Of Arrival: Ambulatory ph 18:26 Coronavirus screen: Vaccine status: Patient reports receiving the 2nd dose of the covid ph vaccine. 18:26 Acuity: DESIREE 3 ph 20:23 Onset of symptoms was June 17, 2022. kb3 Triage Assessment: 18:14 General: Appears in no apparent distress. Behavior is calm, cooperative. Pain: Denies ph pain. Historical: - Allergies: 18:12 No Known Allergies; ph - Home Meds: 20:23 carvedilol Oral [Active]; lisinopril Oral once daily [Active]; kb3 - PMHx: 18:12 Hypertension; ph - PSHx: 20:23 None; kb3 - Immunization history:: Client reports receiving the 2nd dose of the Covid vaccine. - Social history:: Smoking status: Patient denies any tobacco usage or history of. Screenin:14 Abuse screen: Denies threats or abuse. Denies injuries from another. Nutritional ph screening: No deficits noted. Tuberculosis screening: No symptoms or risk factors identified. 18:30 [facility] ED Fall Risk Assessment (Adult) History of falling in the last 3 months, kb3 including since admission No falls in past 3 months (0 pts) Confusion or Disorientation No (0 pts) Intoxicated or Sedated No (0 pts) Impaired Gait No (0 pts) Mobility Assist Device Used No (0 pt) Altered Elimination No (0 pt) Score/Fall Risk Level 0 - 2 = Low Risk Oriented to surroundings, Maintained a safe environment, Educated pt \\T\\ family on fall prevention, incl call for assistance when getting out of bed, Assessed \\T\\ reinforced patient's understanding of fall precautions. Assessment: 18:52 Reassessment: No changes from previously documented assessment. Patient and/or family ll1 updated on plan of care and expected duration. Pain level reassessed. Patient is alert, oriented x 3, equal unlabored respirations, skin warm/dry/pink. Vital Signs: 18:14 BP 185 / 86; Pulse 63; Resp 18; Temp 97.8; Pulse Ox 98% on R/A; Weight 63.5 kg; Height ph 5 ft. 9 in. (175.26 cm); 18:51 BP 170 / 80; Pulse 56; Resp 17; ll1 19:00 BP 163 / 80; Pulse 60; Resp 20; Pulse Ox 99% ; kb3 19:30 BP 172 / 83; Pulse 57; Resp 18; Pulse Ox 98% ; kb3 18:14 Body Mass Index 20.67 (63.50 kg, 175.26 cm) ph ED Course: 17:44 Patient arrived in ED. mr 17:44 Andrew Velazquez DO is Private Physician. mr 18:08 [facility] 18:08 Francisco Javier Rosenthal MD is Attending Physician. [facility] 18:14 Arm band placed on. ph 18:26 Triage completed. ph 18:52 Initial lab(s) drawn, by nj, sent to lab. EKG done, by ED staff, reviewed by rFancisco Javier Rosenthal MD. Inserted saline lock: 20 gauge in left antecubital area, using aseptic technique. Blood collected. 18:53 Patient has correct armband on for positive identification. Bed in low position. Call mm9 light in reach. Side rails up X 1. Warm blanket given. fluoroscope operator on. Pulse ox on. NIBP on. 18:53 CBC with Diff Sent. mm9 18:53 Troponin High Sensitivity Sent. mm9 18:54 BMP Sent. mm9 20:05 No provider procedures requiring assistance completed. IV discontinued, intact, kb3 bleeding controlled, No redness/swelling at site. Administered Medications: 18:51 Drug: amLODIPine 5 mg Route: PO; ll1 20:00 Follow up: Response: No adverse reaction kb3 Medication: 20:05 VIS not applicable for this client. kb3 Outcome: 19:28 Discharge ordered by . ramo 20:05 Discharged to home ambulatory. kb3 20:05 Condition: stable 20:05 Discharge instructions given to patient, Instructed on discharge instructions, follow up and referral plans. medication usage, Demonstrated understanding of instructions, follow-up care, medications, Prescriptions given X 1. 20:24 Patient left the ED. kb3 Signatures: Alfredo Mckeon PA PA jmm Rivera, Mary mr Princess Patel, RN RN patrice Botello, Gilberto, RN RN ll1 Julienne Gary, RN RN [email or web address] Unique Schmidt 9
[2022-06-19 20:30] VITALS: TEMP 97.8
[2022-06-19 20:33] VITALS: BP 172/83; O2SAT 98
== END 2022-06-19 20:24 | disposition home or self-care (01) ==
LOC: ER 17:42
DX: I10 Essential (primary) hypertension (principal)
CPT/HCPCS: 36415; 80048; 81003; 84484; 85025; 99284

== ENCOUNTER 2025-02-16 11:55 | Emergency (ER) | payer OTHER ==
--- OUTSIDE RECORDS SUMMARY | 2025-02-16 12:00 | XMS REPORT | Continuity of Care Document ---
Author Name Unknown Address [address] [facility] [address] [place], [place] [id number] [place], [place] [address] [address] [facility] [address] [place] [address] Care Team Providers Care Switchboard Operator Supervisor Name Role Phone Andrew Velazquez Attending Clinician Unavailable Tumelson_A Attending Clinician Unavailable Delbridge_T Attending Clinician Unavailable BWilliyin Attending Clinician Unavailable Stacie Freeman Attending Clinician Tumelson_A Admitting Clinician Unavailable Delbridge_T Admitting Clinician Unavailable BWilliyin Admitting Clinician Unavailable Payers Payer Name Policy Type Policy Number Effective Date Expiration Date Source [facility] (MEDICARE REPLACEMENT HMO) [id number] 2021 00:00:00 [employer] MEDICARE PPO [id number] [id number] [facility] Problems Condition Name Condition Details Condition Category Status Onset Date Resolution Date Last Treatment Date Treating Clinician Comments Source Spermatoce le Sper[place]ce le of epididymis Problem [facility] [id number] BPH loc w/o ur obs/LUTS Problem [facility] [id number] 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 Problem [facility] Mild cognitive impairment Mild cognitive impairment Problem [facility] [id number] Osteoporos is, unspecifie d osteoporos is type, unspecifie d pathologic al fracture presence Problem [facility] [id number] Subclinica l hypothyroi dism Problem [facility] [id number] Essential (primary) hypertensi on Problem [facility] [id number] Basal cell carcinoma (BCC) of skin of ear, unspecifie d laterality Problem [facility] [id number] Osteoarthr itis, unspecifie d osteoarthr itis type, unspecifie d site Problem [facility] [id number] Hypertrigl yceridemia Problem [facility] [id number] Skin cancer Problem [facility] [id number] 102 Ear ringing, bilateral Problem [facility] [id number] Basal cell carcinoma of skin of other part of trunk Problem [facility] Body mass index 40+ - severely obese Body mass index [BMI] 45.0-49.9, adult Problem [facility] Morbid obesity (disorder) Morbid (severe) obesity due to excess calories Problem [facility] [id number] Unspecifie d deficiency anemia Problem [facility] Social History Social Habit Start Date Stop Date Quantity Comments Source History of Tobacco Use [facility] Sex Assigned At [facility] Smoking Status Start Date Stop Date Source Former Smoker 2024-08-13 00:00:00 2024-08-13 00:00:00 [facility] Never Smoker [facility] Medications Ordered Medication Name Filled Medication Name Start Date Stop Date Current Medication? Ordering Clinician Indication Dosage Frequency Signature (SIG) Comments Components Source hydroCHLORO thiazide 12.5 MG hydroCHLORO thiazide 12.5 MG 2023-07 2-18 00:00: 00 No 1{capsu le_in_t he_morn ing} QD hydroCHLOR Othiazide 12.5 MG Donepezil HCl 10 MG Donepezil HCl 10 MG 8- 00:00: 00 No 1{table t_at_be dtime} QD Donepezil HCl 10 MG amLODIPine Besylate 2.5 MG amLODIPine Besylate 2.5 MG No BID amLODIPine Besylate 2.5 MG Losartan Potassium 50 MG Losartan Potassium 50 MG No 1{table t} BID Losartan Potassium 50 MG Coreg 12.5 MG Coreg 12.5 MG No 1{table t} BID Coreg 12.5 MG Melatonin 3 MG Melatonin 3 MG No 1{table t_at_be dtime_a s_neede d_with_ food} QD Melatonin 3 MG Multi For Him 50+ - Multi For Him 50+ - No Multi For Him 50+ - Ibuprofen 200 MG Ibuprofen 200 MG No TID Ibuprofen 200 MG Aspercreme 10 % Aspercreme 10 % No Aspercreme 10 % Vitamin B12 100 MCG Vitamin B12 100 MCG No Vitamin B12 100 MCG Carvedilol 12.5 MG Carvedilol 12.5 MG No Carvedilol 12.5 MG Tylenol 325 MG Tylenol 325 MG No 1{table t_as_ne eded} 6xD Tylenol 325 MG Vitamin D3 400 UNIT Vitamin D3 400 UNIT No 2{table ts} QD Vitamin D3 400 UNIT Fish Oil 1000 MG Fish Oil 1000 MG No 1{capsu le} QD Fish Oil 1000 MG Immunizations Ordered Immunization Name Filled Immunization Name Date Status Comments Source FLUZONE HIGH DOSE OVER 65 FLUZONE HIGH DOSE OVER 65 2022-04-26 13:42:00 Completed [facility] FLUZONE HIGH DOSE OVER 65 FLUZONE HIGH DOSE OVER 65 2022-04-26 13:42:00 Completed [facility] FLUZONE HIGH DOSE OVER 65 FLUZONE HIGH DOSE OVER 65 2022-04-26 13:42:00 Completed [facility] FLUZONE HIGH DOSE OVER 65 FLUZONE HIGH DOSE OVER 65 2022-04-26 13:42:00 Completed [facility] FLUZONE HIGH DOSE OVER 65 FLUZONE HIGH DOSE OVER 65 2022-04-26 13:42:00 Completed [facility] FLUZONE HIGH DOSE OVER 65 FLUZONE HIGH DOSE OVER 65 2022-04-26 13:42:00 Completed [facility] FluAD FluAD 2020-04-01 14:07:00 Completed [facility] FluAD FluAD 2020-04-01 14:07:00 Completed [facility] FluAD FluAD 2020-04-01 14:07:00 Completed [facility] FluAD FluAD 2020-04-01 14:07:00 Completed [facility] FluAD FluAD 2020-04-01 14:07:00 Completed [facility] FluAD FluAD 2020-04-01 14:07:00 Completed [facility] FluAD FluAD 2020-04-01 14:07:00 Completed [facility] FluAD FluAD 2020-04-01 14:07:00 Completed [facility] FluAD FluAD 2020-04-01 14:07:00 Completed [facility] FluAD FluAD 2019-06-25 14:33:00 Completed [facility] FluAD FluAD 2019-06-25 14:33:00 Completed [facility] FluAD FluAD 2019-06-25 14:33:00 Completed [facility] FluAD FluAD 2019-06-25 14:33:00 Completed [facility] FluAD FluAD 2019-06-25 14:33:00 Completed [facility] FluAD FluAD 2019-06-25 14:33:00 Completed [facility] FluAD FluAD 2019-06-25 14:33:00 Completed [facility] FluAD FluAD 2019-06-25 14:33:00 Completed [facility] FluAD FluAD 2019-06-25 14:33:00 Completed [facility] FluAD FluAD 2019-06-25 00:00:00 Completed [facility] FluAD FluAD Unknown Completed [facility] FLUZONE HIGH DOSE OVER 65 FLUZONE HIGH DOSE OVER 65 Unknown Completed [facility] FluAD FluAD Unknown Completed [facility] FLUZONE HIGH DOSE OVER 65 FLUZONE HIGH DOSE OVER 65 Unknown Completed [facility] FluAD FluAD Unknown Completed [facility] FLUZONE HIGH DOSE OVER 65 FLUZONE HIGH DOSE OVER 65 Unknown Completed [facility] FluAD FluAD Unknown Completed [facility] FLUZONE HIGH DOSE OVER 65 FLUZONE HIGH DOSE OVER 65 Unknown Completed [facility] FluAD FluAD Unknown Completed [facility] FLUZONE HIGH DOSE OVER 65 FLUZONE HIGH DOSE OVER 65 Unknown Completed [facility] FluAD FluAD Unknown Completed [facility] FLUZONE HIGH DOSE OVER 65 FLUZONE HIGH DOSE OVER 65 Unknown Completed [facility] FluAD FluAD Unknown Completed [facility] FLUZONE HIGH DOSE OVER 65 FLUZONE HIGH DOSE OVER 65 Unknown Completed [facility] FluAD FluAD Unknown Completed [facility] FLUZONE HIGH DOSE OVER 65 FLUZONE HIGH DOSE OVER 65 Unknown Completed [facility] FluAD FluAD Unknown Completed [facility] FLUZONE HIGH DOSE OVER 65 FLUZONE HIGH DOSE OVER 65 Unknown Completed [facility] FluAD FluAD Unknown Completed [facility] FLUZONE HIGH DOSE OVER 65 FLUZONE HIGH DOSE OVER 65 Unknown Completed [facility] Vital Signs Vital Name Observation Time Observation Value Comments S ource height 2024-08-13 14:00:00 69.5 [in_i] Comm on [facility] weight 2024-08-13 14:00:00 153.6 [lb_av] Co mmon [facility] temperature 2024-08-13 14:00:00 97.4 [degF] Com mon [facility] bmi 2024-08-13 14:00:00 22.36 kg/m2 Comm on [facility] oximetry 2024-08-13 14:00:00 98 % Commo n [facility] heart rate 2024-08-13 14:00:00 61 /min Commo n [facility] respiratory rate 2024-08-13 14:00:00 17 /min [facility] blood pressure systolic 2024-08-13 14:00:00 143 mm[Hg] [facility] diastolic 2024-08-13 14:00:00 76 mm[Hg] Common [facility] height 2024-08-13 14:20:00 69.5 [in_i] Comm on [facility] weight 2024-08-13 14:20:00 153.6 [lb_av] Co mmon [facility] temperature 2024-08-13 14:20:00 97.4 [degF] Com mon [facility] bmi 2024-08-13 14:20:00 22.36 kg/m2 Comm on [facility] respiratory rate 2024-08-13 14:20:00 17 /min Common [facility] blood pressure systolic 2024-08-13 14:20:00 137 mm[Hg] [facility] blood pressure diastolic 2024-08-13 14:20:00 72 mm[Hg] Common [facility] height 2024-06-20 13:40:00 69.5 [in_i] Comm on [facility] weight 2024-06-20 13:40:00 152 [lb_av] Comm on [facility] temperature 2024-06-20 13:40:00 98.2 [degF] Com mon [facility] bmi 2024-06-20 13:40:00 22.12 kg/m2 Comm on [facility] oximetry 2024-06-20 13:40:00 96 % Commo n [facility] respiratory rate 2024-06-20 13:40:00 17 /min Common [facility] blood pressure systolic 2024-06-20 13:40:00 121 mm[Hg] [facility] blood pressure diastolic 2024-06-20 13:40:00 64 mm[Hg] Common [facility] height 2024-02-14 13:50:00 69.5 [in_i] Comm on [facility] weight 2024-02-14 13:50:00 148.0 [lb_av] Co mmon [facility] temperature 2024-02-14 13:50:00 97.9 [degF] Com [facility] bmi 2024-02-14 13:50:00 21.54 kg/m2 Comm on [facility] oximetry 2024-02-14 13:50:00 99 % Commo n [facility] respiratory rate 2024-02-14 13:50:00 16 /min Common [facility] blood pressure systolic 2024-02-14 13:50:00 126 mm[Hg] Common [facility] blood pressure diastolic 2024-02-14 13:50:00 58 mm[Hg] Common [facility] height 2024-02-14 13:50:00 69.5 [in_i] Comm on [facility] weight 2024-02-14 13:50:00 148.0 [lb_av] Co mmon [facility] temperature 2024-02-14 13:50:00 97.9 [degF] Com [facility] bmi 2024-02-14 13:50:00 21.54 kg/m2 Comm on [facility] oximetry 2024-02-14 13:50:00 99 % Commo n [facility] respiratory rate 2024-02-14 13:50:00 16 /min Common [facility] blood pressure systolic 2024-02-14 13:50:00 126 mm[Hg] [facility] blood pressure diastolic 2024-02-14 13:50:00 58 mm[Hg] Common [facility] height 2023-08-16 15:00:00 69.5 [in_i] Comm on [facility] weight 2023-08-16 15:00:00 151.6 [lb_av] Co mmon [facility] temperature 2023-08-16 15:00:00 97.6 [degF] Com mon [facility] bmi 2023-08-16 15:00:00 22.06 kg/m2 Comm on [facility] oximetry 2023-08-16 15:00:00 97 % Commo n [facility] respiratory rate 2023-08-16 15:00:00 16 /min Common [facility] blood pressure systolic 2023-08-16 15:00:00 139 mm[Hg] [facility] blood pressure diastolic 2023-08-16 15:00:00 67 mm[Hg] [facility] height 2023-08-16 15:00:00 69.5 [in_i] Comm on [facility] weight 2023-08-16 15:00:00 151.6 [lb_av] Co mmon [facility] temperature 2023-08-16 15:00:00 97.6 [degF] Com [facility] bmi 2023-08-16 15:00:00 22.06 kg/m2 Comm on [facility] oximetry 2023-08-16 15:00:00 97 % Commo n [facility] respiratory rate 2023-08-16 15:00:00 16 /min Common [facility] blood pressure systolic 2023-08-16 15:00:00 160 mm[Hg] Common [facility] blood pressure diastolic 2023-08-16 15:00:00 70 mm[Hg] [facility] height 2023-08-16 15:00:00 69.5 [in_i] Comm on [facility] weight 2023-08-16 15:00:00 151.6 [lb_av] Co mmon [facility] temperature 2023-08-16 15:00:00 97.6 [degF] Com [facility] bmi 2023-08-16 15:00:00 22.06 kg/m2 Comm on [facility] oximetry 2023-08-16 15:00:00 97 % Commo n [facility] respiratory rate 2023-08-16 15:00:00 16 /min Common [facility] blood pressure systolic 2023-08-16 15:00:00 160 mm[Hg] [facility] blood pressure diastolic 2023-08-16 15:00:00 70 mm[Hg] [facility] height 2023-02-24 13:20:00 69.5 [in_i] Comm on [facility] weight 2023-02-24 13:20:00 148.0 [lb_av] Co mmon [facility] temperature 2023-02-24 13:20:00 97.4 [degF] Com mon [facility] bmi 2023-02-24 13:20:00 21.54 kg/m2 Comm on [facility] oximetry 2023-02-24 13:20:00 95 % Commo n [facility] respiratory rate 2023-02-24 13:20:00 16 /min Common [facility] blood pressure systolic 2023-02-24 13:20:00 133 mm[Hg] [facility] blood pressure diastolic 2023-02-24 13:20:00 72 mm[Hg] [facility] height 2022-11-24 14:50:00 69.5 [in_i] Comm on [facility] weight 2022-11-24 14:50:00 148.9 [lb_av] Co mmon [facility] temperature 2022-11-24 14:50:00 97.6 [degF] Com [facility] bmi 2022-11-24 14:50:00 21.67 kg/m2 Comm on [facility] oximetry 2022-11-24 14:50:00 99 % Commo n [facility] respiratory rate 2022-11-24 14:50:00 17 /min Common [facility] blood pressure systolic 2022-11-24 14:50:00 138 mm[Hg] Common [facility] blood pressure diastolic 2022-11-24 14:50:00 70 mm[Hg] [facility] height 2022-11-24 15:00:00 69.5 [in_i] Comm on [facility] weight 2022-11-24 15:00:00 148.9 [lb_av] Co mmon [facility] temperature 2022-11-24 15:00:00 97.6 [degF] Com [facility] bmi 2022-11-24 15:00:00 21.67 kg/m2 Comm on [facility] oximetry 2022-11-24 15:00:00 99 % Commo n [facility] respiratory rate 2022-11-24 15:00:00 17 /min Common [facility] blood pressure systolic 2022-11-24 15:00:00 138 mm[Hg] [facility] blood pressure diastolic 2022-11-24 15:00:00 70 mm[Hg] Common [facility] height 2022-08-23 14:00:00 69.5 [in_i] Comm on [facility] weight 2022-08-23 14:00:00 149.9 [lb_av] Co mmon [facility] temperature 2022-08-23 14:00:00 97.2 [degF] Com [facility] bmi 2022-08-23 14:00:00 21.82 kg/m2 Comm on [facility] oximetry 2022-08-23 14:00:00 97 % Commo n [facility] respiratory rate 2022-08-23 14:00:00 17 /min [facility] blood pressure systolic 2022-08-23 14:00:00 139 mm[Hg] Common [facility] blood pressure diastolic 2022-08-23 14:00:00 65 mm[Hg] [facility] height 2022-07-14 13:40:00 69.5 [in_i] Comm on [facility] weight 2022-07-14 13:40:00 149.0 [lb_av] Co mmon [facility] temperature 2022-07-14 13:40:00 97.9 [degF] Com mon [facility] bmi 2022-07-14 13:40:00 21.69 kg/m2 Comm on [facility] oximetry 2022-07-14 13:40:00 98 % Commo n [facility] respiratory rate 2022-07-14 13:40:00 17 /min [facility] blood pressure systolic 2022-07-14 13:40:00 138 mm[Hg] [facility] blood pressure diastolic 2022-07-14 13:40:00 77 mm[Hg] Common [facility] height 2022-06-29 14:00:00 69.5 [in_i] Comm on [facility] weight 2022-06-29 14:00:00 148.6 [lb_av] Co mmon [facility] temperature 2022-06-29 14:00:00 98.1 [degF] Com mon [facility] bmi 2022-06-29 14:00:00 21.63 kg/m2 Comm on [facility] oximetry 2022-06-29 14:00:00 98 % Commo n [facility] respiratory rate 2022-06-29 14:00:00 17 /min [facility] blood pressure systolic 2022-06-29 14:00:00 157 mm[Hg] Common [facility] blood pressure diastolic 2022-06-29 14:00:00 76 mm[Hg] Common [facility] height 2022-05-26 14:00:00 69.5 [in_i] Comm on [facility] weight 2022-05-26 14:00:00 147.8 [lb_av] Co mmon [facility] temperature 2022-05-26 14:00:00 98.7 [degF] Com mon [facility] bmi 2022-05-26 14:00:00 21.51 kg/m2 Comm on [facility] oximetry 2022-05-26 14:00:00 99 % Commo n [facility] respiratory rate 2022-05-26 14:00:00 18 /min Common [facility] blood pressure systolic 2022-05-26 14:00:00 132 mm[Hg] Common [facility] blood pressure diastolic 2022-05-26 14:00:00 68 mm[Hg] Common [facility] height 2022-04-19 13:00:00 69.5 [in_i] Comm on [facility] weight 2022-04-19 13:00:00 148.7 [lb_av] Co mmon [facility] temperature 2022-04-19 13:00:00 97.2 [degF] Com [facility] bmi 2022-04-19 13:00:00 21.64 kg/m2 Comm on [facility] oximetry 2022-04-19 13:00:00 96 % Commo n [facility] respiratory rate 2022-04-19 13:00:00 17 /min Common [facility] blood pressure systolic 2022-04-19 13:00:00 137 mm[Hg] Common [facility] blood pressure diastolic 2022-04-19 13:00:00 70 mm[Hg] Common [facility] height 2022-02-16 15:00:00 69.5 [in_i] Comm on [facility] weight 2022-02-16 15:00:00 147.7 [lb_av] Co mmon [facility] temperature 2022-02-16 15:00:00 97.7 [degF] Com mon [facility] bmi 2022-02-16 15:00:00 21.5 kg/m2 Commo n [facility] oximetry 2022-02-16 15:00:00 98 % Commo n [facility] respiratory rate 2022-02-16 15:00:00 17 /min Common [facility] blood pressure systolic 2022-02-16 15:00:00 137 mm[Hg] [facility] blood pressure diastolic 2022-02-16 15:00:00 71 mm[Hg] Common [facility] height 2021-11-16 14:20:00 69.5 [in_i] Comm on [facility] weight 2021-11-16 14:20:00 152.0 [lb_av] Co mmon [facility] temperature 2021-11-16 14:20:00 99.3 [degF] Com mon [facility] bmi 2021-11-16 14:20:00 22.12 kg/m2 Comm on [facility] oximetry 2021-11-16 14:20:00 97 % Commo n [facility] respiratory rate 2021-11-16 14:20:00 17 /min Common [facility] blood pressure systolic 2021-11-16 14:20:00 132 mm[Hg] Common [facility] blood pressure diastolic 2021-11-16 14:20:00 76 mm[Hg] [facility] height 2021-11-16 14:20:00 69.5 [in_i] Comm on [facility] weight 2021-11-16 14:20:00 152.0 [lb_av] Co mmon [facility] temperature 2021-11-16 14:20:00 99.3 [degF] Com mon [facility] bmi 2021-11-16 14:20:00 22.12 kg/m2 Comm on [facility] oximetry 2021-11-16 14:20:00 97 % Commo n [facility] respiratory rate 2021-11-16 14:20:00 17 /min Common [facility] blood pressure systolic 2021-11-16 14:20:00 132 mm[Hg] Common [facility] blood pressure diastolic 2021-11-16 14:20:00 76 mm[Hg] [facility] height 2021-06-16 15:20:00 69.5 [in_i] Comm on [facility] weight 2021-06-16 15:20:00 148.0 [lb_av] Co mmon [facility] temperature 2021-06-16 15:20:00 97.5 [degF] Com [facility] bmi 2021-06-16 15:20:00 21.54 kg/m2 Comm on [facility] oximetry 2021-06-16 15:20:00 97 % Commo n [facility] respiratory rate 2021-06-16 15:20:00 16 /min [facility] blood pressure systolic 2021-06-16 15:20:00 138 mm[Hg] [facility] blood pressure diastolic 2021-06-16 15:20:00 72 mm[Hg] [facility] Encounters Start Date/Time End Date/Time Encounter Type Admission Type Attending Clinicians Care Facility Care Department Encounter ID Source 2024-08-13 13:36:00 Outpatient Marcus [facility] [id number] [facility] 2024-02-09 15:06:00 [facility] [id number] [facility] 2023-08-12 10:56:00 Outpatient Velazquez, Andrew [facility] [id number] [facility] 2023-02-22 09:39:00 Outpatient Velazquez, Andrew [facility] [id number] [facility] 2022-11-22 13:37:00 Outpatient Velazquez, Andrew [facility] [id number] [facility] 2022-07-13 10:28:00 Outpatient Velazquez, Andrew [facility] [id number] [facility] 2022-07-12 07:54:00 Outpatient Velazquez, Andrew [facility] [id number] [facility] 2022-06-29 07:28:00 Outpatient Velazquez, Andrew [facility] [id number] [facility] 2022-04-16 15:41:00 Outpatient Velazquez, Andrew STLC STLMLC [id number] [facility] 2021-08-24 14:28:01 Outpatient Velazquez, Andrew STLMLC STLMLC [id number] [facility] 2021-07-29 14:37:35 Outpatient Velazquez, Andrew STLMLC STLMLC [id number] [facility] 2021-07-29 12:38:01 Outpatient Velazquez, Andrew STLMLC STLMLC [id number] [facility] 2021-07-29 12:36:57 Outpatient Velazquez, Andrew STLMLC STLMLC [id number] [facility] 2024-11-07 00:00:00 2024-11-07 00:00:00 (TEL) STLMLC STLMLC [id number] [facility] 2024-11-06 00:00:00 2024-11-06 00:00:00 (TEL) STLMLC STLMLC [id number] [facility] 2024-08-13 00:00:00 2024-08-13 00:00:00 OFFICE VISIT ESTAB PT LEVEL 4 STLMLC STLMLC [id number] [facility] 2024-08-13 00:00:00 2024-08-13 00:00:00 SUB ANNUAL MCR WELLNESS VISIT STLMLC STLMLC [id number] [facility] 2024-07-31 00:00:00 2024-07-31 00:00:00 (TEL) STLMLC STLMLC [id number] [facility] 2024-07-18 00:00:00 2024-07-18 00:00:00 (TEL) STLMLC STLMLC [id number] [facility] 2024-06-20 00:00:00 2024-06-20 00:00:00 OFFICE VISIT ESTAB PT LEVEL 4 STLMLC STLMLC [id number] [facility] 2024-06-19 00:00:00 2024-06-19 00:00:00 (TEL) STLMLC STLMLC [id number] [facility] 2024-02-14 00:00:00 2024-02-14 00:00:00 OFFICE VISIT ESTAB PT LEVEL 4 STLMLC STLMLC [id number] [facility] 2024-01-24 00:00:00 2024-01-24 00:00:00 (TEL) STLMLC STLMLC [id number] [facility] 2023-08-16 00:00:00 2023-08-16 00:00:00 SUB ANNUAL MCR WELLNESS VISIT STLMLC STLMLC [id number] [facility] 2023-08-16 00:00:00 2023-08-16 00:00:00 OFFICE VISIT ESTAB PT LEVEL 4 STLMLC STLMLC [id number] [facility] 2023-08-16 00:00:00 2023-08-16 00:00:00 (TEL) STLMLC STLMLC [id number] [facility] 2023-08-04 00:00:00 2023-08-04 00:00:00 (TEL) STLMLC STLMLC [id number] [facility] 2023-02-24 00:00:00 2023-02-24 00:00:00 OFFICE VISIT ESTAB PT LEVEL 3 STLMLC STLMLC [id number] [facility] 2022-11-24 00:00:00 2022-11-24 00:00:00 OFFICE VISIT ESTAB PT LEVEL 4 STLMLC STLMLC [id number] [facility] 2022-11-24 00:00:00 2022-11-24 00:00:00 SUB ANNUAL [facility] WELLNESS VISIT STLMLC STLMLC [id number] [facility] 2022-09-02 00:00:00 2022-09-02 00:00:00 (TEL) STLMLC STLMLC [id number] [facility] 2022-08-23 00:00:00 2022-08-23 00:00:00 OFFICE VISIT ESTAB PT LEVEL 4 STLMLC STLMLC [id number] [facility] 2022-07-14 00:00:00 2022-07-14 00:00:00 OFFICE VISIT EST PT LEVEL 3 STLMLC STLMLC [id number] [facility] 2022-06-29 00:00:00 2022-06-29 00:00:00 OFFICE VISIT ESTAB PT LEVEL 4 STLMLC STLMLC [id number] [facility] 2022-06-24 00:00:00 2022-06-24 00:00:00 (TEL) STLMLC STLMLC [id number] [facility] 2022-05-26 00:00:00 2022-05-26 00:00:00 OFFICE VISIT NEW PT LEVEL 2 STLMLC STLMLC [id number] [facility] 2022-04-26 00:00:00 2022-04-26 00:00:00 (INJ) Injection STLMLC STLMLC [id number] [facility] 2022-04-19 00:00:00 2022-04-19 00:00:00 OFFICE VISIT ESTAB PT LEVEL 4 STLMLC STLMLC [id number] [facility] 2022-02-16 00:00:00 2022-02-16 00:00:00 OFFICE VISIT ESTAB PT LEVEL 4 STLMLC STLMLC [id number] [facility] 2021-12-08 00:00:00 2021-12-08 00:00:00 (TEL) STLMLC STLMLC [id number] [facility] 2021-11-16 00:00:00 2021-11-16 00:00:00 SUB ANNUAL [facility] WELLNESS VISIT STLMLC STLMLC [id number] [facility] 2021-11-16 00:00:00 2021-11-16 00:00:00 OFFICE VISIT ESTAB PT LEVEL 4 STLMLC STLMLC [id number] [facility] 2021-10-19 00:00:00 2021-10-19 00:00:00 (TEL) STLMLC STLMLC [id number] [facility] 2021-08-26 19:00:00 2021-08-26 20:00:00 MILAD Freeman [id number] [address] [place] [address] 2021-08-24 00:00:00 2021-08-24 00:00:00 (TEL) STLMLC STLMLC [id number] [facility] 2021-06-16 00:00:00 2021-06-16 00:00:00 OFFICE VISIT ESTAB PT LEVEL 4 STLMLC STLMLC [id number] [facility] 2021-06-07 00:00:00 2021-06-07 00:00:00 (WEB) STLMLC STLMLC [id number] [facility] 2021-06-05 00:00:00 2021-06-05 00:00:00 (TEL) STLMLC STLMLC [id number] [facility] 2020-09-09 00:00:00 2020-09-09 00:00:00 Outpatient STLMLC STLMLC [id number] [facility] 2020-09-09 00:00:00 2020-09-09 00:00:00 Outpatient STLMLC STLMLC [id number] [facility] 2020-06-13 00:00:00 2020-06-13 00:00:00 Outpatient STLMLC STLMLC [id number] [facility] 2020-06-12 00:00:00 2020-06-12 00:00:00 Outpatient STLMLC STLMLC [id number] [facility] 2020-03-13 14:00:00 2020-03-13 14:00:[address] [facility] [id number] [facility] 2019-11-28 14:45:00 2019-11-28 14:45:[address] [facility] [id number] [facility] 2019-09-11 10:46:00 2019-09-11 10:46:[address] [facility] [id number] [facility] 2019-08-30 14:00:00 2019-08-30 14:00:[address] [facility] [id number] [facility] 2019-06-25 14:15:00 2019-06-25 14:15:[address] [facility] [id number] [facility] 2019-05-29 13:00:00 2019-05-29 13:00:[address] [facility] [id number] [facility] 2019-05-24 15:49:00 2019-05-24 15:49:[address] [facility] [id number] [facility] 2019-05-21 17:05:00 2019-05-21 17:05:00 [facility] [id number] [facility] 2019-04-17 15:15:00 2019-04-17 15:15:00 [facility] [id number] [facility] 2018-10-26 10:00:00 2018-10-26 10:00:00 [facility] [id number] [facility] 2018-10-09 14:44:00 2018-10-09 14:44:00 [facility] [id number] [facility] 2018-04-13 09:30:00 2018-04-13 09:30:00 [facility] [id number] [facility] 2018-03-14 14:00:00 2018-03-14 14:00:[address] [facility] [facility] [id number] [facility] Results Test Description Test Time Test Comments Results Result Co mments Source CBC W/AUTO [id number] 00:00:00* Test Item Value Reference Range Interpretation Comme nts NUCLEATED RBCS (test code = 87633-5) 0.0 /100 WBC'S See_Comment [Automated messa ge] The system which generated this result transmitted reference range: 0.0 /100 WBC'S. The reference range was not used to interpret this result as normal/abnormal. ABSOLUTE EOSINOPHILS (test code = 33720-2) 0.10 K/UL See_Comment [Automated messa ge] The system which generated this result transmitted reference range: 0.00-0.50 K/UL. The reference range was not used to interpret this result as normal/abnormal. ABSOLUTE LYMPHOCYTES (test code = 75986-2) 1.17 K/UL See_Comment [Automated messa ge] The system which generated this result transmitted reference range: 1.00-4.00 K/UL. The reference range was not used to interpret this result as normal/abnormal. ABSOLUTE MONOCYTES (test code = 96843-8) 0.99 K/UL See_Comment [Automated messa ge] The system which generated this result transmitted reference range: 0.20-1.00 K/UL. The reference range was not used to interpret this result as normal/abnormal. ABSOLUTE NEUTROPHILS (test code = 48011-3) 3.50 K/UL See_Comment [Automated messa ge] The system which generated this result transmitted reference range: 1.50-7.50 K/UL. The reference range was not used to interpret this result as normal/abnormal. BASOPHILS (test code = 72438-8) 0.3 % EOSINOPHILS (test code = 01595-7) 1.7 % HEMATOCRIT (test code = 36516-3) 38.1 % See_Comment L [Automated messa ge] The system which generated this result transmitted reference range: 40.0-51.0 %. The reference range was not used to interpret this result as normal/abnormal. HEMOGLOBIN (test code = 718-7) 13.0 G/DL See_Comment L [Automated messa ge] The system which generated this result transmitted reference range: 13.5-17.0 G/DL. The reference range was not used to interpret this result as normal/abnormal. LYMPHOCYTES (test code = 26893-2) 20.2 % MCH (test code = 50924-6) 31.5 PG See_Comment [Automated messa ge] The system which generated this result transmitted reference range: 25.0-33.0 PG. The reference range was not used to interpret this result as normal/abnormal. MCHC (test code = 77987-6) 34.1 G/DL See_Comment [Automated messa ge] The system which generated this result transmitted reference range: 31.0-36.0 G/DL. The reference range was not used to interpret this result as normal/abnormal. MCV (test code = 04948-6) 92.3 fL See_Comment [Automated messa ge] The system which generated this result transmitted reference range: 80.0-99.0 fL. The reference range was not used to interpret this result as normal/abnormal. MONOCYTES (test code = 47169-9) 17.1 % NEUTROPHILS (test code = 24752-2) 60.5 % PLATELET COUNT (test code = 89612-8) 186 K/UL See_Comment [Automated messa ge] The system which generated this result transmitted reference range: 130-400 K/UL. The reference range was not used to interpret this result as normal/abnormal. RBC (test code = 66455-0) 4.13 M/UL See_Comment L [Automated messa ge] The system which generated this result transmitted reference range: 4.50-6.10 M/UL. The reference range was not used to interpret this result as normal/abnormal. RDW (test code = 83373-3) 12.0 % See_Comment [Automated messa ge] The system which generated this result transmitted reference range: 11.5-15.0 %. The reference range was not used to interpret this result as normal/abnormal. WBC (test code = 17182-2) 5.8 K/UL See_Comment [Automated messa ge] The system which generated this result transmitted reference range: 3.5-11.0 K/UL. The reference range was not used to interpret this result as normal/abnormal. CBC W/AUTO [id number] 00:00:00* Test Item Value Reference Range Interpretation Comme nts NUCLEATED RBCS (test code = 22115-2) 0.0 /100 WBC'S See_Comment [Automated messa ge] The system which generated this result transmitted reference range: 0.0 /100 WBC'S. The reference range was not used to interpret this result as normal/abnormal. ABSOLUTE EOSINOPHILS (test code = 43483-3) 0.12 K/UL See_Comment [Automated messa ge] The system which generated this result transmitted reference range: 0.00-0.50 K/UL. The reference range was not used to interpret this result as normal/abnormal. ABSOLUTE LYMPHOCYTES (test code = 83971-1) 1.24 K/UL See_Comment [Automated messa ge] The system which generated this result transmitted reference range: 1.00-4.00 K/UL. The reference range was not used to interpret this result as normal/abnormal. ABSOLUTE MONOCYTES (test code = 06542-8) 0.68 K/UL See_Comment [Automated messa ge] The system which generated this result transmitted reference range: 0.20-1.00 K/UL. The reference range was not used to interpret this result as normal/abnormal. ABSOLUTE NEUTROPHILS (test code = 39980-4) 2.71 K/UL See_Comment [Automated messa ge] The system which generated this result transmitted reference range: 1.50-7.50 K/UL. The reference range was not used to interpret this result as normal/abnormal. BASOPHILS (test code = 68475-2) 0.4 % EOSINOPHILS (test code = 19858-0) 2.5 % HEMATOCRIT (test code = 29065-3) 37.4 % See_Comment L [Automated messa ge] The system which generated this result transmitted reference range: 40.0-51.0 %. The reference range was not used to interpret this result as normal/abnormal. HEMOGLOBIN (test code = 718-7) 12.8 G/DL See_Comment L [Automated messa ge] The system which generated this result transmitted reference range: 13.5-17.0 G/DL. The reference range was not used to interpret this result as normal/abnormal. LYMPHOCYTES (test code = 55606-1) 25.9 % MCH (test code = 75175-4) 31.5 PG See_Comment [Automated messa ge] The system which generated this result transmitted reference range: 25.0-33.0 PG. The reference range was not used to interpret this result as normal/abnormal. MCHC (test code = 62313-7) 34.2 G/DL See_Comment [Automated messa ge] The system which generated this result transmitted reference range: 31.0-36.0 G/DL. The reference range was not used to interpret this result as normal/abnormal. MCV (test code = 29299-1) 92.1 fL See_Comment [Automated messa ge] The system which generated this result transmitted reference range: 80.0-99.0 fL. The reference range was not used to interpret this result as normal/abnormal. MONOCYTES (test code = 08138-0) 14.2 % NEUTROPHILS (test code = 22584-2) 56.8 % PLATELET COUNT (test code = 46530-0) 180 K/UL See_Comment [Automated messa ge] The system which generated this result transmitted reference range: 130-400 K/UL. The reference range was not used to interpret this result as normal/abnormal. RBC (test code = 08958-6) 4.06 M/UL See_Comment L [Automated messa ge] The system which generated this result transmitted reference range: 4.50-6.10 M/UL. The reference range was not used to interpret this result as normal/abnormal. RDW (test code = 61281-2) 12.1 % See_Comment [Automated messa ge] The system which generated this result transmitted reference range: 11.5-15.0 %. The reference range was not used to interpret this result as normal/abnormal. WBC (test code = 73634-6) 4.8 K/UL See_Comment [Automated messa ge] The system which generated this result transmitted reference range: 3.5-11.0 K/UL. The reference range was not used to interpret this result as normal/abnormal. Lower Extremity Arterial BilatLower Extremity Arterial Bilat
[2025-02-16 12:27] LABS: Absolute Lymphocytes (CBC) 1.2 K/uL (0.7-4.9); Hematocrit 40.3 % (39.6-49.0); Hemoglobin 13.6 g/dL (13.6-17.9); MCH 30.8 pg (27.0-35.0); MCHC 33.7 g/dL (32.0-36.0); MCV 91.3 fL (80-100); MPV 8.1 fL (7.6-11.3); Nucleated RBC Absolute Count 0.0 (0-0); Nucleated Red Blood Cells % 0.0 % (0-0); RBC Red Blood Cell Count 4.42 M/uL (4.33-5.43); White Blood Count 6.20 thou/uL (4.3-10.9)
[2025-02-16 12:38] LABS: PT Prothrombin Time 12.2 SECONDS (10-13.0); PTT, Activated Partial Thromb 27.2 SECONDS (27.2-37.4); Protime INR 1.08
[2025-02-16 12:51] LABS: ALT/SGPT 20.0 U/L (16-61); AST/SGOT 12.0 U/L (15-37); Albumin 3.4 g/dL (3.4-5.0); Albumin/Globulin Ratio 1.1 (1.1-1.8); Alkaline Phosphatase 81.0 U/L (45-117); Anion Gap 6.8 mEq/L (5.0-15.0); BUN Blood Urea Nitrogen 14.0 mg/dL (7-18); Bilirubin Indirect, Calculated 0.5 mg/dL (0.2-0.8); Globulin 3.1 g/dL (2.3-3.5); Glucose Level 123.0 mg/dL (74-106); Magnesium 2.4 mg/dL (1.6-2.4); Potassium 3.8 mEq/L (3.5-5.1); Troponin High Sensitivity 7.0 pg/mL (<58.9)
--- NOTE | 2025-02-16 13:00 | RAD REPORT ---
EXAM: CT brain without contrast HISTORY: Head injury status post fall COMPARISON: 2023 TECHNIQUE: Multiple contiguous axial images were obtained and a CT of the brain without contrast.. Sagittal and coronal reconstruction performed. Automated exposure control, adjustment of the mA and/or kV according to patient size, and/or iterative reconstruction. Unless otherwise specified, incidental f indings do not require dedicated imaging follow-up FINDINGS: Right frontal scalp swelling An intracranial bleed is not seen Ventricles are normal caliber No extra-axial fluid collection noted Mild low-density paraventricular, deep and subcortical white matter ischemic changes secondary to sma ll vessel disease. No fluid within the visualized sinuses or mastoids noted. IMPRESSION: No acute intracranial abnormality noted. If the patient continues to have symptoms to suggest an acute intracranial abnormality then MRI of th e brain would be recommended.
--- NOTE | 2025-02-16 13:17 | EDPHYS ---
Physician Documentation [facility] Name: Dragan Dalal Age: 89 yrs Sex: Male : 1935 Arrival Date: 02/16/2025 Time: 11:55 Bed 17 Private MD: ED Physician Suzanna Velazquez HPI: 02/16 13:14 This 89 yrs old Male presents to ER via EMS with complaints of Fall Injury. 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 Injury occurred 30 minutes prior to arrival. Unknown medical prodrome the patient denies. Limited ROS, history and physical secondary to Alzheimer's. All history from EMS and family who did not witness the incident.. Historical: - Allergies: 12:10 No Known Allergies; jl7 - PMHx: 12:10 Hypertension; Alzheimer's disease; jl7 - Immunization history:: Adult Immunizations unknown. - Infectious Disease History:: Denies. - Social history:: Smoking status: Patient denies any tobacco usage or history of. ROS: 13:14 Constitutional: Negative for fever, chills, and weight loss, sp3 13:14 Unable to obtain ROS due to baseline dementia, Exam: 13:15 Constitutional: This is a well developed, well nourished patient who is awake, alert, sp3 and in no acute distress. Eyes: Pupils equal round and reactive to light, extra-ocular motions intact. Lids and lashes normal. Conjunctiva and sclera are non-icteric and not injected. Cornea within normal limits. Periorbital areas with no swelling, redness, or edema. ENT: Nares patent. No nasal discharge, no septal abnormalities noted. External auditory canals are clear. Oropharynx with no redness, swelling, or masses, exudates, or evidence of obstruction, uvula midline. Mucous membranes moist. Neck: Trachea midline, no thyromegaly or masses palpated, and no cervical lymphadenopathy. Supple, full range of motion without nuchal rigidity, or vertebral point tenderness. No Meningismus. Chest/axilla: Normal chest wall appearance and motion. Nontender with no deformity. No lesions are appreciated. Cardiovascular: Regular rate and rhythm with a normal S1 and S2. No gallops, murmurs, or rubs. Normal PMI, no JVD. No pulse deficits. Respiratory: Lungs have equal breath sounds bilaterally, clear to auscultation and percussion. No rales, rhonchi or wheezes noted. No increased work of breathing, no retractions or nasal flaring. Abdomen/GI: Soft, non-tender, with normal bowel sounds. No distension or tympany. No guarding or rebound. No evidence of tenderness throughout. Back: No spinal tenderness. No costovertebral tenderness. Full range of motion. Skin: Warm, dry with normal turgor. Normal color with no rashes, no lesions, and no evidence of cellulitis. MS/ Extremity: Pulses equal, no cyanosis. Neurovascular intact. Full, normal range of motion. Psych: Awake, alert, with orientation to person, place and time. Behavior, mood, and affect are within normal limits. 13:15 Head/face: Abrasion swelling to the right temporal region noted.. 13:15 ECG was reviewed by the Attending Physician. EKG demonstrates sinus bradycardia 54 bpm sp3 with normal intervals, normal QRS, QTc of 476. Nonspecific diffuse ST/T changes without evidence of acute ischemia. Vital Signs: 11:56 BP 147 / 74; Pulse 57; Resp 15; Temp 97; Pulse Ox 96% ; Pain 0/10; jl7 12:32 BP 133 / 74 Supine; Pulse 58; ts3 12:33 BP 137 / 70 Sitting; Pulse 55; ts3 12:34 BP 105 / 67 Standing; Pulse 57; ts3 11:56 Pain Scale: Adult jl7 [place] Coma Score: 11:55 Eye Response: spontaneous(4). Motor Response: obeys commands(6). Verbal Response: jl7 oriented(5). Total: 15. Trauma Score (Adult): 11:55 Eye Response: spontaneous(1); Verbal Response: oriented(1); Motor Response: obeys jl7 commands(2); Systolic BP: > 89 mm Hg(4); Respiratory Rate: 10 to 29 per min(4); Roderick Score: 15; Trauma Score: 12 MDM: 11:59 Medical Screening Exam initiated sp3 13:15 Data reviewed: vital signs, nurses notes, lab test result(s), EKG, radiologic studies. sp3 13:16 ED course: 89-year-old male with mechanical fall and head injury. Will obtain CT scan sp3 of the head, EKG, general labs including troponin. On no medical prodrome to the event. Full workup is negative however patient will be safely discharged home at this time.. 02/16 12:05 Order name: Basic Metabolic Panel; Complete Time: 13:05 sp3 02/16 12:05 Order name: CBC with Diff sp3 02/16 12:05 Order name: Hepatic Function; Complete Time: 13:05 sp3 02/16 12:05 Order name: Magnesium; Complete Time: 13:05 sp3 02/16 12:05 Order name: Protime (+inr); Complete Time: 13:05 sp3 02/16 12:05 Order name: Ptt, Activated; Complete Time: 13:05 sp3 02/16 12:05 Order name: Troponin High Sensitivity; Complete Time: 13:05 sp3 02/16 12:05 Order name: CT Head Brain wo Cont; Complete Time: 13:05 sp3 02/16 12:05 Order name: Cardiac monitoring; Complete Time: 12:18 sp3 02/16 12:05 Order name: EKG - Nurse/Tech; Complete Time: 12:18 sp3 02/16 12:05 Order name: IV Saline Lock; Complete Time: 12:11 sp3 02/16 12:05 Order name: Labs collected and sent; Complete Time: 12:11 sp3 02/16 12:05 Order name: NPO; Complete Time: 12:11 sp3 02/16 12:05 Order name: O2 Sat Monitoring; Complete Time: 12:11 sp3 02/16 12:05 Order name: Orthostatics; Complete Time: 12:37 sp3 Administered Medications: No medications were administered Disposition Summary: 02/16/25 13:16 Discharge Ordered Notes: Location: Home sp3 Condition: Stable sp3 Diagnosis - Closed head injury, mechanical fall sp3 Followup: sp3 - With: Private Physician - When: Upon discharge from the Emergency Department - Reason: Continuance of care Discharge Instructions: - Discharge Summary Sheet sp3 - Head Injury, Adult sp3 Forms: - Medication Reconciliation Form sp3 - Antibiotic Education sp3 - Prescription Opioid Use sp3 - Patient Portal Instructions sp3 - Leadership Thank You Letter sp3 Signatures: Dispatcher [employer] Archana Wren RN RN jl7 Velazquez, Setul, MD MD sp3
--- NOTE | 2025-02-16 13:17 | ER ---
Nurse's Notes [facility] Name: Dragan Dalal Age: 89 yrs Sex: Male : 1935 Arrival Date: 02/16/2025 Time: 11:55 Bed 17 Private MD: Diagnosis: Closed head injury, mechanical fall Presentation: 02/16 11:56 Chief complaint: EMS states: Loss balance, fell, hit head, + LOC, with small lac to jl7 right forehead. Coronavirus screen: At this time, the client does not indicate any symptoms associated with coronavirus-19. Ebola Screen: No symptoms or risks identified at this time. Initial Sepsis Screen: Does the patient meet any 2 criteria? No. Patient's initial sepsis screen is negative. Does the patient have a suspected source of infection? No. Patient's initial sepsis screen is negative. Risk Assessment: Do you want to hurt yourself or someone else? Patient reports no desire to harm self or others. Onset of symptoms was February 16, 2025. Care prior to arrival: IV initiated. 20 GA, in the right antecubital area. 11:56 Method Of Arrival: EMS: [facility] jl7 11:56 Acuity: DESIREE 4 jl7 Triage Assessment: 12:10 General: Appears in no apparent distress. uncomfortable, Behavior is calm, cooperative, jl7 appropriate for age. Pain: Denies pain. Neuro: [place] Agitation-Sedation Scale (RASS): 0 - Alert and Calm Level of Consciousness is awake, alert, obeys commands. Cardiovascular: Patient's skin is warm and dry. Respiratory: Airway is patent Respiratory effort is even, unlabored, Respiratory pattern is regular, symmetrical. Derm: Skin is pink, warm \T\ dry. Injury Description: Laceration sustained to right eye. Historical: - Allergies: 12:10 No Known Allergies; jl7 - PMHx: 12:10 Hypertension; Alzheimer's disease; jl7 - Immunization history:: Adult Immunizations unknown. - Infectious Disease History:: Denies. - Social history:: Smoking status: Patient denies any tobacco usage or history of. Screenin:55 Abuse screen: Denies threats or abuse. Denies injuries from another. Tuberculosis jl7 screening: No symptoms or risk factors identified. 12:24 [facility] ED Fall Risk Assessment (Adult) History of falling in the last 3 months, jl7 including since admission Yes- single mechanical fall (1 pt) Confusion or Disorientation No (0 pts) Intoxicated or Sedated No (0 pts) Impaired Gait No (0 pts) Mobility Assist Device Used No (0 pt) Altered Elimination No (0 pt) Score/Fall Risk Level 3 or more points = High Risk Oriented to surroundings, Maintained a safe environment. Nutritional screening: No deficits noted. Primary Survey: 11:55 NO uncontrolled hemorrhage observed. A: The client is alert. Breathing/Chest: jl7 Spontaneous respiratory effort, equal unlabored respirations, breath sounds clear bilaterally, regular pattern, symmetrical chest rise and fall. Circulation: No external hemorrhage present. Regular and strong central pulse, skin warm/dry/normal color. Disability Client is alert. Exposure/Environment: There is no evidence of uncontrolled external bleeding. Obvious injury(ies) are noted at this time: small laceration to left eye A warming method has been applied: A warm blanket has been provided to the patient. Vital Signs: 11:56 BP 147 / 74; Pulse 57; Resp 15; Temp 97; Pulse Ox 96% ; Pain 0/10; jl7 12:32 BP 133 / 74 Supine; Pulse 58; ts3 12:33 BP 137 / 70 Sitting; Pulse 55; ts3 12:34 BP 105 / 67 Standing; Pulse 57; ts3 11:56 Pain Scale: Adult jl7 [place] Coma Score: 11:55 Eye Response: spontaneous(4). Motor Response: obeys commands(6). Verbal Response: jl7 oriented(5). Total: 15. Trauma Score (Adult): 11:55 Eye Response: spontaneous(1); Verbal Response: oriented(1); Motor Response: obeys jl7 commands(2); Systolic BP: > 89 mm Hg(4); Respiratory Rate: 10 to 29 per min(4); Roderick Score: 15; Trauma Score: 12 ED Course: 11:55 Patient arrived in ED. jl7 11:55 Patient has correct armband on for positive identification. jl7 11:55 Patient maintains SpO2 saturation greater than 95% on room air. Thermoregulation: warm jl7 blanket given to patient. 11:57 Suzanna Velazquez MD is Attending Physician. sp3 12:10 Triage completed. jl7 12:10 Arm band placed on right wrist. jl7 12:11 Archana Womack, RN is Primary Nurse. jl7 12:19 Initial lab(s) drawn, by energy systems laboratory director, sent to lab. ts3 12:19 EKG done, by sterile processing technician. reviewed by Suzanna Velazquez MD. ts3 12:28 CT Head Brain wo Cont In Process Unspecified. EDMS 13:42 No provider procedures requiring assistance completed. IV discontinued, intact, jl7 bleeding controlled, No redness/swelling at site. Pressure dressing applied. Administered Medications: No medications were administered Medication: 12:24 VIS not applicable for this client. jl7 Outcome: 13:16 Discharge ordered by . sp3 13:42 Discharged to home via wheelchair, with family, jl7 13:42 Condition: stable 13:42 Discharge instructions given to patient, family, Instructed on discharge instructions, follow up and referral plans. Demonstrated understanding of instructions, follow-up care, 13:43 Patient left the ED. jl7 Signatures: Dispatcher [employer] EDMS Archana Womack RN RN jl7 Suzanna Velazquez MD MD sp3 Beatriz Bruno ts3 Corrections: (The following items were deleted from the chart) 12:40 12:37 BP 133 / 74 Supine; ts3 ts3 12:40 12:37 BP 137 / 70 Sitting; ts3 ts3 12:40 12:37 BP 105 / 67 Standing; ts3 ts3 12:41 12:37 BP 133 / 74 Supine; Pulse 58bpm; ts3 ts3 12:41 12:37 BP 105 / 67 Standing; Pulse 57bpm; ts3 ts3 12:41 12:37 BP 137 / 70 Sitting; Pulse 55bpm; ts3 ts3
[2025-02-16 14:04] LABS: Differential Total Cells Count 100; Segmented Neutrophils 64 % (40-80)
[2025-02-16 14:05] LABS: Blood Morphology Comment NOT SEEN (NOT SEEN)
[2025-02-16 18:46] VITALS: TEMP 97; O2SAT 96
[2025-02-16 18:52] VITALS: BP 105/67
== END 2025-02-16 13:43 | disposition home or self-care (01) ==
LOC: ER 11:55
DX: S00.81XA Abrasion of other part of head, initial encounter (principal); W18.30XA Fall on same level, unspecified, initial encounter; G30.9 Alzheimer's disease, unspecified; F02.80 Dementia in other diseases classified elsewhere, unspecified severity, without behavioral disturbance, psychotic disturbance, mood disturbance, and anxiety
CPT/HCPCS: 36415; 70450; 80048; 80076; 83735; 84484; 85025; 85610; 85730; 93005; 99284